=== PATIENT | female | born 2000 | race African-American/Black ===

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

== ENCOUNTER 2022-08-21 16:21 | Emergency (ER) | payer OTHER ==
--- OUTSIDE RECORDS SUMMARY | 2022-08-21 16:27 | XMS REPORT | Continuity of Care Document ---
:2000 Author Organization [facility] t Address [address] [facility] [address] [place] [address] Care Team Providers Name Role Phone Melissa Avila Primary Care Physician [phone] MELISSA YOST Attending Clinician Unavailable KIM FLORES Attending Clinician Unavailable Kim Flores CNM Attending Clinician Doctor Unassigned, [place] Attending Clinician Unavailable Melissa Avila Attending Clinician [phone] UNKNOWN, ATTENDING Attending Clinician Unavailable WILLIE MCPHERSON Attending Clinician Unavailable Len Woods MD Attending Clinician Willie Marlow MD Attending Clinician GINA CHRISTENSEN Attending Clinician Unavailable ProviderRaymundo Temp Attending Clinician Unavailable Gina Ndiaye Attending Clinician PHAN LANE Attending Clinician Unavailable Phan Lane MD Attending Clinician Tony CHAUHAN, Ian Paz Attending Clinician Unavailable Shani Villavicencio Attending Clinician SHANI COLE Attending Clinician Unavailable Ultrasound, Ang-Mfm Attending Clinician Unavailable Juan Miguel Arias DO Attending Clinician [address] [place] [address] Usg Room Attending Clinician Unavailable Kassy Quach MD Attending Clinician KASSY QUACH Attending Clinician Unavailable Len Woods MD Admitting Clinician LEN WOODS Admitting Clinician Unavailable Payers Payer Name Policy Type Policy Number Effective Date Expiration Date Audrey patrick [facility] [id number] 2021 CHOICE [place] STAR 00:00:00 MEDICAID PENDING PENDING 2021 00:00:[address] [facility] [id number] 2021 2021 00:00:00 00:00:00 Problems Condition Condition Condition Status Onset Resolution Last Treating Co mments Source Name Details Category Date Date Treatment Clinician Date Other Other Disease Active Univers general general 1- [place] of counseling [place] 00:[place] and advice and advice 00 Me dical for for Branch contracept contracept saud saud management management Over Over Disease Active Univers weight weight 1-31 ity of 00:00: [place] 00 [facility] Branch Elevated Elevated Disease Active Unive rs blood blood 04-01 ity of pressure pressure 00:00: [place] reading reading 00 Medical without without Branch diagnosis diagnosis of of hypertensi hypertensi on on Disease Active U nivers care and care and 109 ity of examinatio examinatio 00:00: [place] n of n of 00 Medical lactating lactating Bran ch mother mother Vacuum-ass Vacuum-ass Disease Active 2021-03 U nivers isted isted 2-19 ity of vaginal vaginal 00:00: [place] delivery delivery 00 Medica l [place] 39 weeks 39 weeks Disease Active 2021-03 Unive rs gestation gestation 2-18 ity of of of 00:00: [place] 00 [facility] anoop [place] Liveborn Liveborn Disease Active 2021-03 Unive rs infant, of , of 2-18 it y of cohen [place] 00:[place] , , 00 Me dical born in born in [facility] hospital by vaginal by vaginal delivery delivery Normal Normal Disease Active 2021-03 Univers labor labor 2-17 ity of 00:00: [place] 00 Medical Branch Anemia of Anemia of Disease Active 2021-03 Uni vers mother in mother in 2-08 ity of , , 00:00[place] antepartum antepartum 00 Me dical Branch Positive Positive Disease Active 2021-03 Unive rs GBS test GBS test 2-05 ity of 00:00: [place] [facility] Obesity Obesity Disease Active 2021-03 Univers affecting affecting 0-27 it[place] of 00:00[place] in third in third 00 Medica l trimester trimester Bran ch Dysuria Dysuria Disease Active Univers 6-20 ity of 00:00: [place] [facility] Primigravi Primigravi Disease Active U nivers da in da in 6-20 ity of first first 00:00: [place] trimester trimester 00 [facility] Supervisio Supervisio Disease Active U nivers n of n of 5-13 ity of high-risk high-risk 00:00: [place] 00 [facility] BMI BMI Disease Active Univers 28.0-28.9, 28.0-28.9, 5-13 it y of adult adult 00:00: [place] [facility] BMI BMI Disease Active Univers 28.0-28.9, 28.0-28.9, 5-13 it y of adult adult 00:00: [place] [facility] Allergies, Adverse Reactions, Alerts Allergy Allergy Status Severity Reaction(s) Onset Inactive Treating Comm ents Source Name Type Date Date Clinician Amoxicil Propensi Active Rash Univer s amelia ty to 5-13 ity of adverse 00:00: [place] reaction 00 [facility] AMOXICIL DRUG Active Rash Univers AMELIA INGREDI 5-13 ity of 00:00: [place] [facility] Social History Social Habit Start Date Stop Date Quantity Comments Source ASSERTION 2021-05-30 [facility] 00:00:00 [facility] Exposure to 2022-07-14 2022-07-24 Not sure [facility] SARS-CoV-2 00:00:00 13:19:00 [facility] (event) [place] Alcohol intake 2022-07-24 2022-07-24 Ex-drinker [facility] 00:00:00 00:00:00 (finding) [facility] Tobacco use and 2021-09-09 2021-09-09 Smokeless tobacco Un iversity of exposure 00:00:00 00:00:00 non-user [facility] Sex Assigned At [birth year] Universit y of 00:00:00 00:00:00 [facility] Smoking Status Start Date Stop Date Source Never smoked tobacco [facility] Medications Ordered Filled Start Stop Current Ordering Indication Dosage Frequency Signature Comments Components Source Medication Medication Date Date Medication? Clinician (SIG) Name Name KristinIDADANUTA 2022- Yes [id number] 500mg Take 1 Univers LE 500 mg 5-29 - tablet by ity of tablet 00:00: 04:59 mouth in [place] 00 :00 the Medical morning Branch and 1 tablet in the evening. Do all this for 7 days. 2021-03 Yes [id number] 1{tbl} Take 1 U nivers vitamin 2-19 tablet by ity of w/FA tablet 00:00: mouth in [place] 00 the Medical morning. Branch docusate 2021-03 Yes [id number] 200mg Take 2 Un foster 100 mg 2-19 capsules ity of capsule 00:00: by mouth [place] 00 once daily Medical as needed Branch for Constipati on. ferrous 2021-03 Yes [id number] 325mg Take 1 Uni vers sulfate 325 2-19 tablet by ity of mg (65 mg 00:00: [place] iron) 00 the Medical tablet morning Branch and 1 tablet in the evening. ibuprofen 2021-03 Yes [id number] 600mg Take 1 U nivers 600 mg 2-19 tablet by ity of tablet 00:00: mouth [place] 00 every 6 Medical (six) Branch hours as needed (Pain). Take with food or milk. 2021-03 Yes [id number] 1{tbl} Take 1 U nivers vitamin 2-19 tablet by ity of w/FA tablet 00:00: mouth in [place] 00 the Medical morning. Branch docusate 2021-03 Yes [id number] 200mg Take 2 Un foster 100 mg 2-19 capsules ity of capsule 00:00: by mouth [place] 00 once daily Medical as needed Branch for Constipati on. ferrous 2021-03 Yes [id number] 325mg Take 1 Uni vers sulfate 325 2-19 tablet by ity of mg (65 mg 00:00: [place] iron) 00 the Medical tablet morning Branch and 1 tablet in the evening. ibuprofen 2021-03 Yes [id number] 600mg Take 1 U nivers 600 mg 2-19 tablet by ity of tablet 00:00: mouth [place] 00 every 6 Medical (six) Branch hours as needed (Pain). Take with food or milk. 2021-03 Yes [id number] 1{tbl} Take 1 U nivers vitamin 2-19 tablet by ity of w/FA tablet 00:00: mouth in [place] 00 the Medical morning. Branch docusate 2021-03 Yes [id number] 200mg Take 2 Un foster 100 mg 2-19 capsules ity of capsule 00:00: by mouth [place] 00 once daily Medical as needed Branch for Constipati on. ferrous 2021-03 Yes [id number] 325mg Take 1 Uni vers sulfate 325 2-19 tablet by ity of mg (65 mg 00:00: [place] iron) 00 the Medical tablet morning Branch and 1 tablet in the evening. ibuprofen 2021-03 Yes [id number] 600mg Take 1 U nivers 600 mg 2-19 tablet by ity of tablet 00:00: mouth [place] 00 every 6 Medical (six) Branch hours as needed (Pain). Take with food or milk. 2021-03 Yes [id number] 1{tbl} Take 1 U nivers vitamin 2-19 tablet by ity of w/FA tablet 00:00: mouth in [place] 00 the Medical morning. Branch docusate 2021-03 Yes [id number] 200mg Take 2 Un foster 100 mg 2-19 capsules ity of capsule 00:00: by mouth [place] 00 once daily Medical as needed Branch for Constipati on. ferrous 2021-03 Yes [id number] 325mg Take 1 Uni vers sulfate 325 2-19 tablet by ity of mg (65 mg 00:00: [place] iron) 00 the Medical tablet morning Branch and 1 tablet in the evening. ibuprofen 2021-03 Yes [id number] 600mg Take 1 U nivers 600 mg 2-19 tablet by ity of tablet 00:00: mouth [place] 00 every 6 Medical (six) Branch hours as needed (Pain). Take with food or milk. 2021-03 Yes [id number] 1{tbl} Take 1 U nivers vitamin 2-19 tablet by ity of w/FA tablet 00:00: mouth in [place] 00 the Medical morning. Branch docusate 2021-03 Yes [id number] 200mg Take 2 Un foster 100 mg 2-19 capsules ity of capsule 00:00: by mouth [place] 00 once daily Medical as needed Branch for Constipati on. ferrous 2021-03 Yes [id number] 325mg Take 1 Uni vers sulfate 325 2-19 tablet by ity of mg (65 mg 00:00: [place] iron) 00 the Medical tablet morning Branch and 1 tablet in the evening. ibuprofen 2021-03 Yes [id number] 600mg Take 1 U nivers 600 mg 2-19 tablet by ity of tablet 00:00: mouth [place] 00 every 6 Medical (six) Branch hours as needed (Pain). Take with food or milk. 2021-03 Yes [id number] 1{tbl} Take 1 U nivers vitamin 2-19 tablet by ity of w/FA tablet 00:00: mouth in [place] 00 the Medical morning. [facility] Yes [id number] 200mg Take 2 Un foster 100 mg 2-19 capsules ity of capsule 00:00: by mouth [place] 00 once daily Medical as needed Branch for Constipati on. ferrous 2021-03 Yes [id number] 325mg Take 1 Uni vers sulfate 325 2-19 tablet by ity of mg (65 mg 00:00: mouth [place] iron) 00 the Medical tablet morning Branch and 1 tablet in the evening. ibuprofen 2021-03 Yes [id number] 600mg Take 1 U nivers 600 mg 2-19 tablet by ity of tablet 00:00: mouth [place] 00 every 6 Medical (six) Branch hours as needed (Pain). Take with food or milk. 2021-03 Yes [id number] 1{tbl} Take 1 U nivers vitamin 2-19 tablet by ity of w/FA tablet 00:00: mouth in [place] 00 the Medical morning. Branch [facility]-03 Yes [id number] 200mg Take 2 Un foster 100 mg 2-19 capsules ity of capsule 00:00: by mouth [place] 00 once daily Medical as needed Branch for Constipati on. ferrous 2021-03 Yes [id number] 325mg Take 1 Uni vers sulfate 325 2-19 tablet by ity of mg (65 mg 00:00: [place] iron) 00 the Medical tablet morning Branch and 1 tablet in the evening. ibuprofen 2021-03 Yes [id number] 600mg Take 1 U nivers 600 mg 2-19 tablet by ity of tablet 00:00: mouth [place] 00 every 6 Medical (six) Branch hours as needed (Pain). Take with food or milk. 2021-03 Yes [id number] 1{tbl} Take 1 U nivers vitamin 2-19 tablet by ity of w/FA tablet 00:00: mouth in [place] 00 the Medical morning. Branch docusate 2021-03 Yes [id number] 200mg Take 2 Un foster 100 mg 2-19 capsules ity of capsule 00:00: by mouth [place] 00 once daily Medical as needed Branch for Constipati on. ferrous 2021-03 Yes [id number] 325mg Take 1 Uni vers sulfate 325 2-19 tablet by ity of mg (65 mg 00:00: [place] iron) 00 the Medical tablet morning Branch and 1 tablet in the evening. ibuprofen 2021-03 Yes [id number] 600mg Take 1 U nivers 600 mg 2-19 tablet by ity of tablet 00:00: mouth [place] 00 every 6 Medical (six) Branch hours as needed (Pain). Take with food or milk. 2021-03- No [id number] 1{tbl} Take 1 Univers vitamin 2-19 05-25 tablet by ity of w/FA tablet 00:00: 00:00 mouth [place] 00 :00 the Medical morning. Branch docusate 2021-03- No [id number] 200mg Take 2 U nivers 100 mg 2-19 05-25 capsules ity of capsule 00:00: 00:00 by mouth [place] 00 :00 once daily Medical as needed Branch for Constipati on. ferrous 2021-03- No [id number] 325mg Take 1 Un foster sulfate 325 2-19 05-25 tablet by it y of mg (65 mg 00:00: 00:00 mouth in [place] as iron) 00 :00 the Medical tablet morning Branch and 1 tablet in the evening. ibuprofen 2021-03- No [id number] 600mg Take 1 Univers 600 mg 2-19 05-25 tablet by ity of tablet 00:00: 00:00 mouth [place] 00 :00 every 6 Medical (six) Branch hours as needed (Pain). Take with food or milk. 2021-03- No [id number] 1{tbl} Take 1 Univers vitamin - 05-25 tablet by ity of w/FA tablet 00:00: 00:00 mouth in [place] 00 :00 the Medical morning. Branch docusate 2021-03- No [id number] 200mg Take 2 U nivers 100 mg 04-20-25 capsules ity of capsule 00:00: 00:00 by mouth [place] 00 :00 once daily Medical as needed Branch for Constipati on. ferrous 2021-03- No [id number] 325mg Take 1 Un foster sulfate 325 04-20-25 tablet by it y of mg (65 mg 00:00: 00:00 mouth in [place] as iron) 00 :00 the Medical tablet morning Branch and 1 tablet in the evening. ibuprofen 2021-03- No [id number] 600mg Take 1 Univers 600 mg 04-20-25 tablet by ity of tablet 00:00: 00:00 mouth [place] 00 :00 every 6 Medical (six) Branch hours as needed (Pain). Take with food or milk. rho(D) 2021-03 Yes 300ug 300 mcg, Univer s immune 2-18 Intramuscu ity of globulin 10:16: lar, ONCE, [place] as (RHOGAM) 19 For 1 Medical syringe 300 dose, Branch mcg Conditiona l, Routine witch Du 2021-03 Yes Topical, Un foster (TUCKS) 50 2-18 Q4HPRN, ity of % topical 10:16: Starting [place] pad 15 on [place] Medical 02/16/22 Branch at 0416, Until Discontinu ed, Routine, rectal/hem orrhoidal pain HYDROcodone 2021-03 Yes 1{tbl} 1 tablet, Univers -acetaminop 2-18 Oral, ity of hen (NORCO 10:16: Q6HPRN, [place] 5) 5-325 mg 15 Starting Medi anoop tablet 1 on [place] Branch tablet 02/16/22 at 0416, Until Discontinu ed, Routine, Pain (scale 7-10) ibuprofen 2021-03 Yes 600mg 600 mg, Univ ers (IBU) 2-18 Oral, ity of tablet 600 10:16: Q6HPRN, [place] mg 15 Starting Medical on Sun Branch 02/16/22 at 0416, Until Discontinu ed, Routine, Pain (scale 4-6) acetaminoph 2021-03 Yes 650mg 650 mg, Un foster en 2-18 Oral, ity of (TYLENOL) 10:16: Q6HPRN, [place] tablet 650 15 Starting Medic al mg on Sun Branch 02/16/22 at 0416, Until Discontinu ed, Routine, Pain (scale 1-3) diphenhydrA 2021-03 Yes 25mg 25 mg, Univ ers MINE 2-18 Oral, ity of (BENADRYL) 10:16: Q6HPRN, [place] tablet 25 15 Starting Medica l mg on Sun Branch 02/16/22 at 0416, Until Discontinu ed, Routine, Sleep, Itching ondansetron 2021-03 Yes 4mg 4 mg, Slow Univers (ZOFRAN 2-18 IV Push, ity of (PF)) 10:16: Q8HPRN, [place] injection 4 15 Starting Medi anoop mg on Sun Branch 02/16/22 at 0416, Until Discontinu ed, Routine, Nausea and Vomiting (N/V) simethicone 2021-03 Yes 160mg 160 mg, Un foster (GAS RELIEF 2-18 Oral, ity of (SIMETHICON 10:16: PC+HSPRN, [place] E)) 15 Starting Medical chewable on Sun Branch tablet 160 02/16/22 mg at 0416, Until Discontinu ed, Routine, Gas docusate 2021-03 Yes 200mg 200 mg, Unive rs (COLACE) 2-18 Oral, ity of capsule 200 10:16: QDAILYPRN, [place] mg 15 Starting Medical on Sun Branch 02/16/22 at 0416, Until Discontinu ed, Routine, Constipati on magnesium 2021-03 Yes 30mL 30 mL, Univer s hydroxide 2-18 Oral, ity of (MILK OF 10:16: QDAILYPRN, [place] as MAGNESIA) 15 Starting Medica l 400 mg/5 mL on Sun Branch suspension 02/16/22 30 mL at 0416, Until Discontinu ed, Routine, Constipati on benzocaine- 2021-03 Yes Topical, Un foster menthol 2-18 PRN, ity of (DERMOPLAST 10:16: Starting [place] ) 20-0.5 % 15 on [place] Medical topical 02/16/22 Branch spray at 0416, Until Discontinu ed, Routine, Perineum discomfort fentaNYL-ro 2021-03- No Epidural, Univers pivacaine 2 04-19 ONCE INTRA i ty of mcg/mL-0.1 02:30: 14:20 PROCEDURE, [place] % (PF) in 00 :45 Starting Medica l NS 200 mL on [facility] Branch epidural 02/15/22 infusion at 2030, RTU Until [place] 02/16/22 at 0820, Routine, Intra-op lidocaine-e 2021-03- No Intraderma Univers pinephrine 04-19 l, ONCE ity o f (XYLOCAINE 02:28: 14:20 INTRA [place] W/EPINEPHRI 00 :45 PROCEDURE, Me dical NE) 1.5 Starting Branch %-1:200,000 on Sat injection 02/15/22 at 2028, Until 02/16/22 at 0820, Routine, Intra-op clindamycin 2021-03- No 900mg 900 mg, IV Univers in 5 % 04-19 Piggyback, ity of dextrose 02:00: 10:16 Q8H ABXMike s (CLEOCIN) 00 :17 144 doses, Medi anoop 900 mg/50 First dose Bran ch mL IV on Sat piggyback 02/15/22 RTU 900 mg at 2000, Last dose on Thu04/04/22 at 1200, Administer over 30 Minutes, 50 mL
Reas on for Anti-Infec tive: Documented Infection& lt;br>Docu mented Infection Site: Urine
D uration of Therapy: Other (see Comments)< br>Rest ricted use approved by: [employer]
human resources team member approving Restricted medication : LEN WOODS lactated 2021-03- No 500mL at 999 Unive rs ringers IV 04-19-18 mL/hr, 500 it y of infusion 00:12: 10:16 mL, IV [place] 500 mL 41 :17 Infusion, Medical PRN - SEE Branch INSTRUCTIO NS, Starting on 02/15/22 at 1812, Until 02/16/22 at 0416, Routine D5W-LR IV 2021-03 No 1000mL at 1-125 U nivers infusion 2-18 12-18 mL/hr, IV ity o f 1,000 mL 00:12: 10:16 Infusion, [place] as 41 :17 TITRATE, Medical Starting Branch on 02/15/22 at 1812, Until 02/16/22 at 0416, Routine NaCl 0.9% 2021-03 Yes 1000mL at 999 Univ ers (NS) IV 2-10 mL/hr, ity of infusion 04:45: Intravenou [place] as 1,000 mL 00 s, Medical CONTINUOUS Branch , Starting on 02/07/22 at 2245, Until Discontinu ed, Routine ondansetron 2021-03- No 4mg 4 mg, Slow Univers (ZOFRAN 2-10 12-10 IV Push, ity of (PF)) 03:45: 03:45 ONCE, 1 [place] injection 4 00 :00 dose, On Medi anoop mg Fri Branch 02/07/22 at 2145, NORBERTO cephALEXin 2021-03 Yes [id number] 500mg Take 1 Univers (KEFLEX) 2-09 capsule by ity o f 500 mg 00:00: mouth in [place] capsule 00 the Medical morning Branch and 1 capsule in the evening. ondansetron 2021-03 Yes [id number] 4mg Take 1 U nivers (ZOFRAN) 4 2-09 tablet by ity of mg tablet 00:00: mouth [place] 00 every 8 Medical (eight) Branch hours as needed for Nausea and Vomiting (N/V). cephALEXin 2021-03 Yes [id number] 500mg Take 1 Univers (KEFLEX) 2-09 capsule by ity o f 500 mg 00:00: mouth in [place] capsule 00 the Medical morning Branch and 1 capsule in the evening. ondansetron 2021-03 Yes [id number] 4mg Take 1 U nivers (ZOFRAN) 4 2-09 tablet by ity of mg tablet 00:00: mouth [place] 00 every 8 Medical (eight) Branch hours as needed for Nausea and Vomiting (N/V). cephALEXin 2021-03 Yes [id number] 500mg Take 1 Univers (KEFLEX) 2-09 capsule by ity o f 500 mg 00:00: mouth in [place] capsule 00 the Medical morning Branch and 1 capsule in the evening. ondansetron 2021-03 Yes [id number] 4mg Take 1 U nivers (ZOFRAN) 4 2-09 tablet by ity of mg tablet 00:00: mouth [place] 00 every 8 Medical (eight) Branch hours as needed for Nausea and Vomiting (N/V). cephALEXin 2021-03 Yes [id number] 500mg Take 1 Univers (KEFLEX) 2-09 capsule by ity o f 500 mg 00:00: mouth in [place] capsule 00 the Medical morning Branch and 1 capsule in the evening. ondansetron 2021-03 Yes [id number] 4mg Take 1 U nivers (ZOFRAN) 4 2-09 tablet by ity of mg tablet 00:00: mouth [place] 00 every 8 Medical (eight) Branch hours as needed for Nausea and Vomiting (N/V). cephALEXin 2021-03- No [id number] 500mg Take 1 Univers (KEFLEX) 2-09 12-19 capsule by ity of 500 mg 00:00: 00:00 mouth in [place] capsule 00 :00 the Medical morning Branch and 1 capsule in the evening. ondansetron 2021-03- No [id number] 4mg Take 1 Univers (ZOFRAN) 4 2-09 12-19 tablet by ity of mg tablet 00:00: 00:00 mouth [place] 00 :00 every 8 Medical (eight) Branch hours as needed for Nausea and Vomiting (N/V). Iron Fum & 2021-03 Yes [id number] 1{capsu Take 1 Univers P-FA-Vit B 2-08 le} capsule by ity of & C No.9 00:00: mouth [place] (INTEGRA 00 daily. Medical PLUS) 125 Branch mg iron- 1 mg Cap Iron Fum & 2021-03 Yes [id number] 1{capsu Take 1 Univers P-FA-Vit B 2-08 le} capsule by ity of & C No.9 00:00: mouth [place] (INTEGRA 00 daily. Medical PLUS) 125 Branch mg iron- 1 mg Cap Iron Fum & 2021-03 Yes 1{capsu Take 1 Univers P-FA-Vit B 2-08 le} capsule by ity of & C No.9 00:00: mouth [place] (INTEGRA 00 daily. Medical PLUS) 125 Branch mg iron- 1 mg Cap Iron Fum & 2021-03 Yes [id number] 1{capsu Take 1 Univers P-FA-Vit B 2-08 le} capsule by ity of & C No.9 00:00: mouth [place] (INTEGRA 00 daily. Medical PLUS) 125 Branch mg iron- 1 mg Cap Iron Fum & 2021-03 Yes [id number] 1{capsu Take 1 Univers P-FA-Vit B 2-08 le} capsule by ity of & C No.9 00:00: mouth [place] (INTEGRA 00 daily. Medical PLUS) 125 Branch mg iron- 1 mg Cap Iron Fum & 2021-03 Yes [id number] 1{capsu Take 1 Univers P-FA-Vit B 2-08 le} capsule by ity of & C No.9 00:00: mouth [place] (INTEGRA 00 daily. Medical PLUS) 125 Branch mg iron- 1 mg Cap Iron Fum & 2021-03- No [id number] 1{capsu Take 1 Univers P-FA-Vit B 2-08 12-19 le} capsule by it y of & C No.9 00:00: 00:00 mouth [place] (INTEGRA 00 :00 daily. Medical PLUS) 125 Branch mg iron- 1 mg Cap No known 2021-03 No No known Unive rs medications 2-02 medication it y of 13:20: [address] No known 2021- No No known Unive rs medications 1-10 medication it y of 08:48: [address] No known 2021-1 No No known Unive rs medications 1-10 medication it y of 08:48: [address] No known 2021-1 No No known Unive rs medications 1-10 medication it y of 08:48: [address] No known 2021-1 No No known Unive rs medications 1-10 medication it y of 08:48: [address] No known 2021-1 No No known Unive rs medications 0-27 medication it y of 09:00: [address] No known 2021-1 No No known Unive rs medications 0-06 medication it y of 09:30: [address] No known 2021-1 No No known Unive rs medications 0-06 medication it y of 09:30: [address] No known 2021-0 No No known Unive rs medications 9-22 medication it y of 11:24: [address] No known 2021-0 No No known Unive rs medications 9- medication it y of 11:24: [address] No known 2021-0 No No known Unive rs medications 9- medication it y of 11:24: [address] No known 2021-0 No No known Unive rs medications 9- medication it y of 11:24: [address] No known 2021-0 No No known Unive rs medications 9- medication it y of 11:24: [address] No known 2021-0 No No known Unive rs medications 9- medication it y of 13:22: [address] No known 2021-0 No No known Unive rs medications 9- medication it y of 13:22: [address] No known 2021-0 No No known Unive rs medications 8-25 medication it y of 13:34: [address] No known 2021-0 No No known Unive rs medications 8-25 medication it y of 13:34: [address] fluconazole 2021-0 2022- No [id number] 150mg Take 1 Univers (DIFLUCAN) 8- 08-26 tablet by ity of 150 mg 00:00: 04:59 mouth [place] tablet 00 :00 now for 1 Medical dose. Branch No known 0 No No known Unive rs medications 8-08 medication it y of 11:55: [address] No known 2021-0 No No known Unive rs medications 8-08 medication it y of 11:55: [address] No known 2021-0 No No known Unive rs medications 7-11 medication it y of 12:00: [address] No known 2021-0 No No known Unive rs medications 7-11 medication it y of 12:00: [address] No known 2021-0 No No known Unive rs medications 7-11 medication it y of 12:00: [address] Immunizations Ordered Immunization Filled Immunization Date Status Commen ts Source Name Name Influenza Virus 2021-12-26 Completed Universit y of Vaccine [facility] IM, 00:00:00 [facility] dical Preserv and ABX Free Bran ch 6 MO-64 YRS Influenza Virus 2021-12-26 Completed Universit y of Vaccine Quad IM, 00:00:00 [place] Me dical Preserv and ABX Free Bran ch 6 MO-64 YRS Influenza Virus 2021-12-26 Completed Universit y of Vaccine [facility] IM, 00:00:00 [place] Me dical Preserv and ABX Free Bran ch 6 MO-64 YRS Influenza Virus 2021-12-26 Completed Universit y of Vaccine [facility] IM, 00:00:00 [place] Me dical Preserv and ABX Free Bran ch 6 MO-64 YRS Influenza Virus 2021-12-26 Completed Universit y of Vaccine [facility] IM, 00:00:00 [place] Me dical Preserv and ABX Free Bran ch 6 MO-64 YRS Influenza Virus 2021-12-26 Completed Universit y of Vaccine [facility] IM, 00:00:00 [place] Me dical Preserv and ABX Free Bran ch 6 MO-64 YRS Influenza Virus 2021-12-26 Completed Universit y of Vaccine [facility] IM, 00:00:00 [place] Me dical Preserv and ABX Free Bran ch 6 MO-64 YRS Influenza Virus 2021-12-26 Completed Universit y of Vaccine Quad IM, 00:00:00 [place] Me dical Preserv and ABX Free Bran ch 6 MO-64 YRS Influenza Virus 2021-12-26 Completed [facility] Vaccine [facility] IM, 00:00:00 [place] [facility] Preserv and ABX Free Bran ch 6 MO-64 YRS TDAP 2021-12-05 Completed [facility] 00:00:00 [facility] TDAP 2021-12-05 Completed [facility] of 00:00:00 [facility] TDAP 2021-12-05 Completed [facility] of 00:00:00 [facility] TDAP 2021-12-05 Completed [facility] of 00:00:00 [facility] TDAP 2021-12-05 Completed [facility] of 00:00:00 [facility] TDAP 2021-12-05 Completed [facility] of 00:00:00 [facility] TDAP 2021-12-05 Completed [facility] of 00:00:00 [facility] TDAP 2021-12-05 Completed [facility] of 00:00:00 [facility] TDAP 2021-12-05 Completed [facility] of 00:00:00 [facility] TDAP 2021-12-05 Completed [facility] of 00:00:00 [facility] TDAP 2021-12-05 Completed [facility] of 00:00:00 [facility] TDAP 2021-12-05 Completed [facility] of 00:00:00 [facility] TDAP 2021-12-05 Completed [facility] of 00:00:00 [facility] TDAP 2021-12-05 Completed [facility] of 00:00:00 [facility] TDAP 2021-12-05 Completed [facility] of 00:00:00 [facility] TDAP 2021-12-05 Completed [facility] of 00:00:00 [facility] TDAP 2021-12-05 Completed [facility] of 00:00:00 [facility] TDAP 2021-12-05 Completed [facility] of 00:00:00 [facility] TDAP 2021-12-05 Completed [facility] of 00:00:00 [facility] TDAP 2021-12-05 Completed [facility] of 00:00:00 [facility] TDAP 2021-12-05 Completed [facility] of 00:00:00 [facility] TDAP 2021-12-05 Completed [facility] of 00:00:00 [facility] TDAP 2021-12-05 Completed [facility] of 00:00:00 [facility] TDAP 2021-12-05 Completed [facility] of 00:00:00 [facility] TDAP 2021-12-05 Completed [facility] of 00:00:00 [facility] HPV 2014-06-21 Completed [facility] 00:00:00 [facility] Meningococcal 2014-06-21 Completed [facility] Polysaccharide 00:00:00 [place] [facility] (groups A, C, Y and Branc h W-135) conjugate vaccine (MCV4P) TDAP 2014-06-21 Completed [facility] 00:00:00 [facility] HPV 2014-06-21 Completed [facility] 00:00:00 [facility] Meningococcal 2014-06-21 Completed [facility] Polysaccharide 00:00:00 [place] [facility] (groups A, C, Y and Branc h W-135) conjugate vaccine (MCV4P) TDAP 2014-06-21 Completed [facility] 00:00:00 [facility] HPV 2014-06-21 Completed [facility] 00:00:00 [facility] Meningococcal 2014-06-21 Completed [facility] Polysaccharide 00:00:00 [place] [facility] (groups A, C, Y and Branc h W-135) conjugate vaccine (MCV4P) TDAP 2014-06-21 Completed [facility] 00:00:00 [facility] HPV 2014-06-21 Completed [facility] 00:00:00 [facility] Meningococcal 2014-06-21 Completed [facility] Polysaccharide 00:00:00 [place] [facility] (groups A, C, Y and Branc h W-135) conjugate vaccine (MCV4P) TDAP 2014-06-21 Completed [facility] of 00:00:00 [facility] HPV 2014-06-21 Completed [facility] 00:00:00 [facility] Meningococcal 2014-06-21 Completed [facility] Polysaccharide 00:00:00 [place] [facility] (groups A, C, Y and Branc h W-135) conjugate vaccine (MCV4P) TDAP 2014-06-21 Completed [facility] of 00:00:00 [facility] HPV 2014-06-21 Completed [facility] 00:00:00 [facility] Meningococcal 2014-06-21 Completed [facility] Polysaccharide 00:00:00 [place] [facility] (groups A, C, Y and Branc h W-135) conjugate vaccine (MCV4P) TDAP 2014-06-21 Completed [facility] 00:00:00 [facility] HPV 2014-06-21 Completed [facility] 00:00:00 [facility] Meningococcal 2014-06-21 Completed [facility] Polysaccharide 00:00:00 [place] [facility] (groups A, C, Y and Branc h W-135) conjugate vaccine (MCV4P) TDAP 2014-06-21 Completed [facility] of 00:00:00 [facility] HPV 2014-06-21 Completed [facility] 00:00:00 [facility] Meningococcal 2014-06-21 Completed [facility] Polysaccharide 00:00:00 [place] [facility] (groups A, C, Y and Branc h W-135) conjugate vaccine (MCV4P) TDAP 2014-06-21 Completed [facility] of 00:00:00 [facility] HPV 2014-06-21 Completed [facility] 00:00:00 [facility] Meningococcal 2014-06-21 Completed [facility] Polysaccharide 00:00:00 [place] [facility] (groups A, C, Y and Branc h W-135) conjugate vaccine (MCV4P) TDAP 2014-06-21 Completed [facility] of 00:00:00 [facility] DTaP, Unspecified 2006-12-15 Completed [facility]y of Formulation 00:00:00 [facility] HEPATITIS A 2006-12-15 Completed [facility] of 00:00:00 [facility] DTaP, Unspecified 2006-12-15 Completed [facility] of Formulation 00:00:00 [facility] HEPATITIS A 2006-12-15 Completed [facility] of 00:00:00 [facility] DTaP, Unspecified 2006-12-15 Completed [facility] it[facility] of Formulation 00:00:00 [facility] HEPATITIS A 2006-12-15 Completed [facility] of 00:00:00 [facility] DTaP, Unspecified 2006-12-15 Completed [facility] of Formulation 00:00:00 [facility] HEPATITIS A 2006-12-15 Completed [facility] of 00:00:00 [facility] DTaP, Unspecified 2006-12-15 Completed [facility] of Formulation 00:00:00 [facility] HEPATITIS A 2006-12-15 Completed [facility] of 00:00:00 [facility] DTaP, Unspecified 2006-12-15 Completed [facility] of Formulation 00:00:00 [facility] HEPATITIS A 2006-12-15 Completed [facility] of 00:00:00 [facility] DTaP, Unspecified 2006-12-15 Completed [facility] it[facility] of Formulation 00:00:00 [facility] HEPATITIS A 2006-12-15 Completed [facility] of 00:00:00 [facility] DTaP, Unspecified 2006-12-15 Completed [facility] of Formulation 00:00:00 [facility] HEPATITIS A 2006-12-15 Completed [facility] of 00:00:00 [facility] DTaP, Unspecified 2006-12-15 Completed [facility] of Formulation 00:00:00 [facility] HEPATITIS A 2006-12-15 Completed [facility] of 00:00:00 [facility] Proquad 2006-09-24 Completed [facility] of (MMR/VARICELLA) 00:00:00 [facility] [place] [facility] IPV 2006-09-24 Completed [facility] of 00:00:00 [facility] Proquad 2006-09-24 Completed [facility] of (MMR/VARICELLA) 00:00:00 [facility] [place] [facility] IPV 2006-09-24 Completed [facility] of 00:00:00 [facility] Proquad 2006-09-24 Completed [facility] of (MMR/VARICELLA) 00:00:00 [facility] [place] [facility] IPV 2006-09-24 Completed [facility] of 00:00:00 [facility] Proquad 2006-09-24 Completed [facility] of (MMR/VARICELLA) 00:00:00 [facility] [place] [facility] IPV 2006-09-24 Completed [facility] of 00:00:00 [facility] Proquad 2006-09-24 Completed [facility] of (MMR/VARICELLA) 00:00:00 [facility] Branch IPV 2006-09-24 Completed [facility] of 00:00:00 [facility] Proquad 2006-09-24 Completed [facility] of (MMR/VARICELLA) 00:00:00 [facility] [place] [facility] IPV 2006-09-24 Completed [facility] of 00:00:00 [facility] Proquad 2006-09-24 Completed [facility] of (MMR/VARICELLA) 00:00:00 [facility] Branch IPV 2006-09-24 Completed [facility] of 00:00:00 [facility] Proquad 2006-09-24 Completed [facility] of (MMR/VARICELLA) 00:00:00 [facility] IPV 2006-09-24 Completed [facility] of 00:00:00 [facility] Proquad 2006-09-24 Completed [facility] of (MMR/VARICELLA) 00:00:00 [facility] IPV 2006-09-24 Completed [facility] of 00:00:00 [facility] DTaP, Unspecified 2006-05-28 Completed Univers ity of Formulation 00:00:00 [facility] HEPATITIS A 2006-05-28 Completed [facility] of 00:00:00 [facility] Hep B, Adol or Pedi 2006-05-28 Completed Unive rsity of Dosage 00:00:00 [facility] Hib-HbOC 2006-05-28 Completed [facility] of 00:00:00 [facility] Pneumococcal 7 2006-05-28 Completed University of Conjugate, PCV7 00:00:00 [facility] (Prevnar7) Branch DTaP, Unspecified 2006-05-28 Completed [facility] it[facility] of Formulation 00:00:00 [facility] HEPATITIS A 2006-05-28 Completed [facility] of 00:00:00 [facility] Hep B, Adol or Pedi 2006-05-28 Completed Unive rsity of Dosage 00:00:00 [facility] Hib-HbOC 2006-05-28 Completed [facility] of 00:00:00 [facility] Pneumococcal 7 2006-05-28 Completed [facility] of Conjugate, PCV7 00:00:00 [facility] (Prevnar7) Branch DTaP, Unspecified 2006-05-28 Completed Univers ity of Formulation 00:00:00 [facility] HEPATITIS A 2006-05-28 Completed [facility] of 00:00:00 [facility] Hep B, Adol or Pedi 2006-05-28 Completed Unive rsity of Dosage 00:00:00 [facility] Hib-HbOC 2006-05-28 Completed [facility] of 00:00:00 [facility] Pneumococcal 7 2006-05-28 Completed [facility] of Conjugate, PCV7 00:00:00 [place] [facility] (Prevnar7) Branch DTaP, Unspecified 2006-05-28 Completed [facility] ity of Formulation 00:00:00 [facility] HEPATITIS A 2006-05-28 Completed [facility] of 00:00:00 [facility] Hep B, Adol or Pedi 2006-05-28 Completed Unive rsity of Dosage 00:00:00 [facility] Hib-HbOC 2006-05-28 Completed [facility] of 00:00:00 [facility] Pneumococcal 7 2006-05-28 Completed [facility] of Conjugate, PCV7 00:00:00 [facility] ical (Prevnar7) Branch DTaP, Unspecified 2006-05-28 Completed Univers ity of Formulation 00:00:00 [facility] HEPATITIS A 2006-05-28 Completed [facility] of 00:00:00 [facility] Hep B, Adol or Pedi 2006-05-28 Completed Unive rsity of Dosage 00:00:00 [facility] Hib-HbOC 2006-05-28 Completed [facility] of 00:00:00 [facility] Pneumococcal 7 2006-05-28 Completed [facility] of Conjugate, PCV7 00:00:00 [facility] ica (Prevnar7) Branch DTaP, Unspecified 2006-05-28 Completed Univers ity of Formulation 00:00:00 [facility] HEPATITIS A 2006-05-28 Completed [facility] of 00:00:00 [facility] Hep B, Adol or Pedi 2006-05-28 Completed Unive rsity of Dosage 00:00:00 [facility] Hib-HbOC 2006-05-28 Completed [facility] of 00:00:00 [facility] Pneumococcal 7 2006-05-28 Completed [facility] of Conjugate, PCV7 00:00:00 [facility] ical (Prevnar7) Branch DTaP, Unspecified 2006-05-28 Completed Univers ity of Formulation 00:00:00 [facility] HEPATITIS A 2006-05-28 Completed [facility] of 00:00:00 [facility] Hep B, Adol or Pedi 2006-05-28 Completed Unive rsity of Dosage 00:00:00 [facility] Hib-HbOC 2006-05-28 Completed [facility] of 00:00:00 [facility] Pneumococcal 7 2006-05-28 Completed [facility] of Conjugate, PCV7 00:00:00 [facility] (Prevnar7) Branch DTaP, Unspecified 2006-05-28 Completed Univers ity of Formulation 00:00:00 [facility] HEPATITIS A 2006-05-28 Completed [facility] of 00:00:00 [facility] Hep B, Adol or Pedi 2006-05-28 Completed Unive rsity of Dosage 00:00:00 [facility] Hib-HbOC 2006-05-28 Completed [facility] of 00:00:00 [facility] Pneumococcal 7 2006-05-28 Completed University of Conjugate, PCV7 00:00:00 [facility] (Prevnar7) Branch DTaP, Unspecified 2006-05-28 Completed Univers ity of Formulation 00:00:00 [facility] HEPATITIS A 2006-05-28 Completed [facility] of 00:00:00 [facility] Hep B, Adol or Pedi 2006-05-28 Completed Unive rsity of Dosage 00:00:00 [facility] Hib-HbOC 2006-05-28 Completed [facility] of 00:00:00 [facility] Pneumococcal 7 2006-05-28 Completed University of Conjugate, PCV7 00:00:00 [facility] (Prevnar7) Branch MMR 2003-06-29 Completed [facility] of 00:00:00 [facility] Varicella 2003-06-29 Completed University of (varivax)(chicken 00:00:00 [place] [facility] pox) [facility] MMR 2003-06-29 Completed [facility] 00:00:00 [facility] Varicella 2003-06-29 Completed [facility] of (varivax)(chicken 00:00:00 [place] [facility] pox) [facility] MMR 2003-06-29 Completed [facility] 00:00:00 [facility] Varicella 2003-06-29 Completed [facility] of (varivax)(chicken 00:00:00 [place] [facility] pox) [facility] MMR 2003-06-29 Completed [facility] 00:00:00 [facility] Varicella 2003-06-29 Completed [facility] of (varivax)(chicken 00:00:00 [place] [facility] pox) [facility] MMR 2003-06-29 Completed [facility] 00:00:00 [facility] Varicella 2003-06-29 Completed [facility] of (varivax)(chicken 00:00:00 [place] [facility] pox) [facility] MMR 2003-06-29 Completed [facility] 00:00:00 [facility] Varicella 2003-06-29 Completed [facility] of (varivax)(chicken 00:00:00 [place] [facility] pox) [facility] MMR 2003-06-29 Completed [facility] 00:00:00 [facility] Varicella 2003-06-29 Completed [facility] of (varivax)(chicken 00:00:00 [place] [facility] pox) [facility] MMR 2003-06-29 Completed [facility] of 00:00:00 [facility] Varicella 2003-06-29 Completed [facility] of (varivax)(chicken 00:00:00 [place] [facility] pox) [facility] MMR 2003-06-29 Completed [facility] of 00:00:00 [facility] Varicella 2003-06-29 Completed [facility] of (varivax)(chicken 00:00:00 [place] [facility] pox) [facility] DTaP, Unspecified 2003-04-06 Completed [facility] ity of Formulation 00:00:00 [facility] HIB 4 Dose Schedule 2003-04-06 Completed Unive rsity of 00:00:00 [facility] Pneumococcal 7 2003-04-06 Completed [facility] of Conjugate, PCV7 00:00:00 [place] [facility] (Prevnar7) Branch IPV 2003-04-06 Completed [facility] of 00:00:00 [facility] DTaP, Unspecified 2003-04-06 Completed [facility] ity of Formulation 00:00:00 [facility] HIB 4 Dose Schedule 2003-04-06 Completed Unive rsity of 00:00:00 [facility] Pneumococcal 7 2003-04-06 Completed [facility] of Conjugate, PCV7 00:00:00 [place] [facility] (Prevnar7) Branch IPV 2003-04-06 Completed [facility] of 00:00:00 [facility] DTaP, Unspecified 2003-04-06 Completed [facility] ity of Formulation 00:00:00 [facility] HIB 4 Dose Schedule 2003-04-06 Completed Unive rsity of 00:00:00 [facility] Pneumococcal 7 2003-04-06 Completed [facility] of Conjugate, PCV7 00:00:00 [place] [facility] (Prevnar7) Branch IPV 2003-04-06 Completed [facility] of 00:00:00 [facility] DTaP, Unspecified 2003-04-06 Completed Univers ity of Formulation 00:00:00 [facility] HIB 4 Dose Schedule 2003-04-06 Completed Unive rsity of 00:00:00 [facility] Pneumococcal 7 2003-04-06 Completed [facility] of Conjugate, PCV7 00:00:00 [place] [facility] (Prevnar7) Branch IPV 2003-04-06 Completed [facility] of 00:00:00 [facility] DTaP, Unspecified 2003-04-06 Completed Univers ity of Formulation 00:00:00 [facility] HIB 4 Dose Schedule 2003-04-06 Completed Unive rsity of 00:00:00 [facility] Pneumococcal 7 2003-04-06 Completed University of Conjugate, PCV7 00:00:00 [place] [facility] (Prevnar7) Branch IPV 2003-04-06 Completed [facility] of 00:00:00 [facility] DTaP, Unspecified 2003-04-06 Completed [facility] ity of Formulation 00:00:00 [facility] HIB 4 Dose Schedule 2003-04-06 Completed Unive rsity of 00:00:00 [facility] Pneumococcal 7 2003-04-06 Completed [facility] of Conjugate, PCV7 00:00:00 [place] [facility] (Prevnar7) Branch IPV 2003-04-06 Completed [facility] of 00:00:00 [facility] DTaP, Unspecified 2003-04-06 Completed Univers ity of Formulation 00:00:00 [facility] HIB 4 Dose Schedule 2003-04-06 Completed Unive rsity of 00:00:00 [facility] Pneumococcal 7 2003-04-06 Completed [facility] of Conjugate, PCV7 00:00:00 [place] [facility] (Prevnar7) Branch IPV 2003-04-06 Completed [facility] of 00:00:00 [facility] DTaP, Unspecified 2003-04-06 Completed [facility] ity of Formulation 00:00:00 [facility] HIB 4 Dose Schedule 2003-04-06 Completed Unive rsity of 00:00:00 [facility] Pneumococcal 7 2003-04-06 Completed [facility] of Conjugate, PCV7 00:00:00 [place] [facility] (Prevnar7) Branch IPV 2003-04-06 Completed [facility] of 00:00:00 [facility] DTaP, Unspecified 2003-04-06 Completed [facility] ity of Formulation 00:00:00 [facility] HIB 4 Dose Schedule 2003-04-06 Completed Unive rsity of 00:00:00 [facility] Pneumococcal 7 2003-04-06 Completed [facility] of Conjugate, PCV7 00:00:00 [place] [facility] (Prevnar7) Branch IPV 2003-04-06 Completed [facility] of 00:00:00 [facility] DTaP, Unspecified 2002 Completed [facility] it[facility] of Formulation 00:00:00 [facility] Hep B, Adol or Pedi 2002 Completed Unive rsity of Dosage 00:00:00 [facility] Hib-HbOC 2002 Completed [facility] of 00:00:00 [facility] Pneumococcal 7 2002 Completed [facility] of Conjugate, PCV7 00:00:00 [place] [facility] (Prevnar7) Branch IPV 2002 Completed [facility] 00:00:00 [facility] DTaP, Unspecified 2002 Completed [facility] it[facility] Formulation 00:00:00 [facility] Hep B, Adol or Pedi 2002 Completed Unive rsity of Dosage 00:00:00 [facility] Hib-HbOC 2002 Completed [facility] of 00:00:00 [facility] Pneumococcal 7 2002 Completed [facility] of Conjugate, PCV7 00:00:00 [place] [facility] (Prevnar7) Branch IPV 2002 Completed [facility] of 00:00:00 [facility] DTaP, Unspecified 2002 Completed [facility] it[facility] of Formulation 00:00:00 [facility] Hep B, Adol or Pedi 2002 Completed Unive rsity of Dosage 00:00:00 [facility] Hib-HbOC 2002 Completed [facility] of 00:00:00 [facility] Pneumococcal 7 2002 Completed [facility] of Conjugate, PCV7 00:00:00 [place] [facility] (Prevnar7) Branch IPV 2002 Completed [facility] 00:00:00 [facility] DTaP, Unspecified 2002 Completed Univers it[facility] Formulation 00:00:00 [facility] Hep B, Adol or Pedi 2002 Completed Unive rsity of Dosage 00:00:00 [facility] Hib-HbOC 2002 Completed [facility] of 00:00:00 [facility] Pneumococcal 7 2002 Completed [facility] of Conjugate, PCV7 00:00:00 [place] [facility] (Prevnar7) Branch IPV 2002 Completed [facility] 00:00:00 [facility] DTaP, Unspecified 2002 Completed Univers it[facility] of Formulation 00:00:00 [facility] Hep B, Adol or Pedi 2002 Completed Unive rsity of Dosage 00:00:00 [facility] Hib-HbOC 2002 Completed [facility] of 00:00:00 [facility] Pneumococcal 7 2002 Completed [facility] of Conjugate, PCV7 00:00:00 [place] [facility] (Prevnar7) Branch IPV 2002 Completed [facility] 00:00:00 [facility] DTaP, Unspecified 2002 Completed Univers it[facility] of Formulation 00:00:00 [facility] Hep B, Adol or Pedi 2002 Completed Unive rsity of Dosage 00:00:00 [facility] Hib-HbOC 2002 Completed [facility] of 00:00:00 [facility] Pneumococcal 7 2002 Completed [facility] of Conjugate, PCV7 00:00:00 [place] [facility] (Prevnar7) Branch IPV 2002 Completed [facility] 00:00:00 [facility] DTaP, Unspecified 2002 Completed Univers it[facility] of Formulation 00:00:00 [facility] Hep B, Adol or Pedi 2002 Completed Unive rsity of Dosage 00:00:00 [facility] Hib-HbOC 2002 Completed [facility] of 00:00:00 [facility] Pneumococcal 7 2002 Completed [facility] of Conjugate, PCV7 00:00:00 [place] [facility] (Prevnar7) Branch IPV 2002 Completed [facility] 00:00:00 [facility] DTaP, Unspecified 2002 Completed Univers it[facility] Formulation 00:00:00 [facility] Hep B, Adol or Pedi 2002 Completed Unive rsity of Dosage 00:00:00 [facility] Hib-HbOC 2002 Completed University of 00:00:00 [facility] Pneumococcal 7 2002 Completed University of Conjugate, PCV7 00:00:00 [place] [facility] ([facility] IPV 2002 Completed University of 00:00:00 [facility] DTaP, Unspecified 2002 Completed Univers ity of Formulation 00:00:00 [facility] Hep B, Adol or Pedi 2002 Completed Unive rsity of Dosage 00:00:00 [facility] Hib-HbOC 2002 Completed University of 00:00:00 [facility] Pneumococcal 7 2002 Completed University of Conjugate, PCV7 00:00:00 [place] [facility] (Pre[facility] IPV 2002 Completed University of 00:00:00 [facility] DTaP, Unspecified 2002 Completed Univers ity of Formulation 00:00:00 [facility] HIB 4 Dose Schedule 2002 Completed Unive rsity of 00:00:00 [facility] Pneumococcal 7 2002 Completed University of Conjugate, PCV7 00:00:00 [place] [facility] (Pre[facility] IPV 2002 Completed University of 00:00:00 [facility] DTaP, Unspecified 2002 Completed Univers ity of Formulation 00:00:00 [facility] HIB 4 Dose Schedule 2002 Completed Unive rsity of 00:00:00 [facility] Pneumococcal 7 2002 Completed University of Conjugate, PCV7 00:00:00 [place] [facility] ([facility] IPV 2002 Completed University of 00:00:00 [facility] DTaP, Unspecified 2002 Completed Univers ity of Formulation 00:00:00 [facility] HIB 4 Dose Schedule 2002 Completed Unive rsity of 00:00:00 [facility] Pneumococcal 7 2002 Completed University of Conjugate, PCV7 00:00:00 [place] [facility] ([facility] IPV 2002 Completed University of 00:00:00 [facility] DTaP, Unspecified 2002 Completed Univers ity of Formulation 00:00:00 [facility] HIB 4 Dose Schedule 2002 Completed Unive rsity of 00:00:00 [facility] Pneumococcal 7 2002 Completed University of Conjugate, PCV7 00:00:00 [place] [facility] ([facility] IPV 2002 Completed University of 00:00:00 [facility] DTaP, Unspecified 2002 Completed Univers ity of Formulation 00:00:00 [facility] HIB 4 Dose Schedule 2002 Completed Unive rsity of 00:00:00 [facility] Pneumococcal 7 2002 Completed University of Conjugate, PCV7 00:00:00 [place] [facility] ([facility] IPV 2002 Completed University of 00:00:00 [facility] DTaP, Unspecified 2002 Completed Univers ity of Formulation 00:00:00 [facility] HIB 4 Dose Schedule 2002 Completed Unive rsity of 00:00:00 [facility] Pneumococcal 7 2002 Completed University of Conjugate, PCV7 00:00:00 [place] [facility] ([facility] IPV 2002 Completed University of 00:00:00 [facility] DTaP, Unspecified 2002 Completed Univers ity of Formulation 00:00:00 [facility] HIB 4 Dose Schedule 2002 Completed Unive rsity of 00:00:00 [facility] Pneumococcal 7 2002 Completed University of Conjugate, PCV7 00:00:00 [place] [facility] ([facility] IPV 2002 Completed University of 00:00:00 [facility] DTaP, Unspecified 2002 Completed Univers ity of Formulation 00:00:00 [facility] HIB 4 Dose Schedule 2002 Completed Unive rsity of 00:00:00 [facility] Pneumococcal 7 2002 Completed University of Conjugate, PCV7 00:00:00 [place] [facility] ([facility] IPV 2002 Completed University of 00:00:00 [facility] DTaP, Unspecified 2002 Completed Univers ity of Formulation 00:00:00 [facility] HIB 4 Dose Schedule 2002 Completed Unive rsity of 00:00:00 [facility] Pneumococcal 7 2002 Completed University of Conjugate, PCV7 00:00:00 [place] [facility] (Pre[facility] IPV 2002 Completed University of 00:00:00 [facility] Hep B, Adol or Pedi 2002 Completed Unive rsity of Dosage 00:00:00 [facility] Hep B, Adol or Pedi 2002 Completed Unive rsity of Dosage 00:00:00 [facility] Hep B, Adol or Pedi 2002 Completed Unive rsity of Dosage 00:00:00 [facility] Hep B, Adol or Pedi 2002 Completed Unive rsity of Dosage 00:00:00 [facility] Hep B, Adol or Pedi 2002 Completed Unive rsity of Dosage 00:00:00 [facility] Hep B, Adol or Pedi 2002 Completed Unive rsity of Dosage 00:00:00 [facility] Hep B, Adol or Pedi 2002 Completed Unive rsity of Dosage 00:00:00 [facility] Hep B, Adol or Pedi 2002 Completed Unive rsity of Dosage 00:00:00 [facility] Hep B, Adol or Pedi 2002 Completed Unive rsity of Dosage 00:00:00 [facility] Hep B, Adol or Pedi 2002 Completed Unive rsity of Dosage 00:00:00 [facility] Hep B, Adol or Pedi 2002 Completed Unive rsity of Dosage 00:00:00 [facility] Hep B, Adol or Pedi 2002 Completed Unive rsity of Dosage 00:00:00 [facility] Hep B, Adol or Pedi 2002 Completed Unive rsity of Dosage 00:00:00 [facility] Hep B, Adol or Pedi 2002 Completed Unive rsity of Dosage 00:00:00 [facility] Hep B, Adol or Pedi 2002 Completed Unive rsity of Dosage 00:00:00 [facility] Hep B, Adol or Pedi 2002 Completed Unive rsity of Dosage 00:00:00 [facility] Hep B, Adol or Pedi 2002 Completed Unive rsity of Dosage 00:00:00 [facility] Hep B, Adol or Pedi 2002 Completed Unive rsity of Dosage 00:00:00 [facility] Vital Signs Vital Name Observation Time Observation Value Comments Source Systolic blood 2022-07-24 18:34:00 127 mm[Hg] Univer sity of pressure [facility] Diastolic blood 2022-07-24 18:34:00 80 mm[Hg] Unive rsity of pressure [facility] Heart rate 2022-07-24 18:34:00 90 /min Universi ty of [facility] Body temperature 2022-07-24 18:34:00 35.89 [place]up[place] Univ ersity of [facility] Respiratory rate 2022-07-24 18:34:00 18 /min Univ ersity of [facility] Body height 2022-07-24 18:34:00 165.1 cm Universi ty of [facility] Body weight 2022-07-24 18:34:00 81.336 kg Universi ty of [facility] BMI 2022-07-24 18:34:00 29.84 kg/m2 Universi ty of [facility] Systolic blood 2022-04-01 19:21:00 136 mm[Hg] Univer sity of pressure [facility] Diastolic blood 2022-04-01 19:21:00 89 mm[Hg] Unive rsity of pressure [facility] Heart rate 2022-04-01 19:21:00 71 /min Universi ty of [facility] Body temperature 2022-04-01 19:20:00 36.44 [place]up[facility] Univ ers[facility] of [facility] Respiratory rate 2022-04-01 19:20:00 18 /min Univ ersity of [facility] Body height 2022-04-01 19:20:00 165.1 cm Universi ty of [facility] Body weight 2022-04-01 19:20:00 77.656 kg Universi ty of [facility] BMI 2022-04-01 19:20:00 28.49 kg/m2 [facility]i ty of [facility] Systolic blood 2022-03-10 19:27:00 141 mm[Hg] Univer sity of pressure [facility] Diastolic blood 2022-03-10 19:27:00 85 mm[Hg] Unive rsity of pressure [facility] Heart rate 2022-03-10 19:26:00 70 /min Universi ty of [facility] Body temperature 2022-03-10 19:26:00 36.56 [place] Univ ers[facility] of [facility] Respiratory rate 2022-03-10 19:26:00 18 /min Univ ersity of [facility] Body height 2022-03-10 19:26:00 165.1 cm [facility]i ty [facility] Body weight 2022-03-10 19:26:00 78.16 kg Universi ty of [facility] BMI 2022-03-10 19:26:00 28.67 kg/m2 [facility]i [facility] of [facility] Systolic blood 2022-02-17 14:00:00 124 mm[Hg] Univer sity of pressure [facility] Diastolic blood 2022-02-17 14:00:00 76 mm[Hg] Unive rsity of pressure [facility] Heart rate 2022-02-17 14:00:00 74 /min Universi ty of [facility] Body temperature 2022-02-17 14:00:00 36.61 [facility]up[facility] Univ [facility] Respiratory rate 2022-02-17 14:00:00 17 /min Univ ersity of [facility] Oxygen saturation in 2022-02-17 14:00:00 98 /min University of Arterial blood by [facility] Pulse oximetry Branch Body height 2022-02-16 00:32:00 165.1 cm Universi ty of [facility] Body weight 2022-02-16 00:32:00 87.998 kg Universi [facility] BMI 2022-02-16 00:32:00 32.28 kg/m2 [facility] Systolic blood 2022-02-15 15:10:00 137 mm[Hg] Univer sity of pressure [facility] Diastolic blood 2022-02-15 15:10:00 88 mm[Hg] Unive rsity of pressure [facility] Heart rate 2022-02-15 15:10:00 83 /min Universi ty [facility] Body temperature 2022-02-15 15:10:00 36.22 [facility] Univ [facility] Respiratory rate 2022-02-15 15:10:00 20 /min Univ ersity of [facility] Body height 2022-02-15 15:10:00 165.1 cm [facility]i [facility] Body weight 2022-02-15 15:10:00 88.134 kg [facility]i [facility] BMI 2022-02-15 15:10:00 32.33 kg/m2 [facility] Systolic blood 2022-02-08 05:00:00 118 mm[Hg] Univer sity of pressure [facility] Diastolic blood 2022-02-08 05:00:00 65 mm[Hg] Unive rsity of pressure [facility] Heart rate 2022-02-08 05:00:00 84 /min Universi ty of [facility] Respiratory rate 2022-02-08 05:00:00 16 /min Univ ersity of [facility] Oxygen saturation in 2022-02-08 05:00:00 97 /min University of Arterial blood by [facility] Pulse oximetry Branch Body temperature 2022-02-08 03:16:00 37.28 [place] Univ ers[facility] of [facility] Body height 2022-02-08 03:16:00 165.1 cm Universi ty [facility] Body weight 2022-02-08 03:16:00 87.272 kg [facility] BMI 2022-02-08 03:16:00 32.02 kg/m2 [facility] Systolic blood 2022-02-06 19:16:00 129 mm[Hg] Univer sity of pressure [facility] Diastolic blood 2022-02-06 19:16:00 81 mm[Hg] Unive rsity of pressure [facility] Heart rate 2022-02-06 19:16:00 74 /min Universi ty of [facility] Body temperature 2022-02-06 19:16:00 36.83 [facility] Univ [facility] Respiratory rate 2022-02-06 19:16:00 17 /min Univ ersity of [facility] Body height 2022-02-06 19:16:00 167.6 cm [facility]i [facility] Body weight 2022-02-06 19:16:00 89.223 kg [facility] ty of [facility] BMI 2022-02-06 19:16:00 31.75 kg/m2 [facility] ty of [facility] Systolic blood 2022-01-31 19:16:00 116 mm[Hg] Univer sity of pressure [facility] Diastolic blood 2022-01-31 19:16:00 78 mm[Hg] Unive rsity of pressure [facility] Heart rate 2022-01-31 19:16:00 90 /min Universi ty of [facility] Body temperature 2022-01-31 19:16:00 36.11 [facility] Univ [facility] Respiratory rate 2022-01-31 19:16:00 17 /min Univ ersity of [facility] Body height 2022-01-31 19:16:00 167.6 cm [facility] Body weight 2022-01-31 19:16:00 88.27 kg [facility] BMI 2022-01-31 19:16:00 31.41 kg/m2 [facility] Systolic blood 2022-01-09 14:27:00 122 mm[Hg] Univer sity of pressure [facility] Diastolic blood 2022-01-09 14:27:00 80 mm[Hg] Unive rsity of pressure [facility] Heart rate 2022-01-09 14:27:00 80 /min [facility]i [facility] Body temperature 2022-01-09 14:27:00 36.22 [facility] Univ [facility] Respiratory rate 2022-01-09 14:27:00 18 /min Univ ersity of [facility] Body height 2022-01-09 14:27:00 167.6 cm [facility] Body weight 2022-01-09 14:27:00 85.815 kg [facility] BMI 2022-01-09 14:27:00 30.54 kg/m2 [facility] Systolic blood 2021-12-26 13:55:00 130 mm[Hg] Univer sity of pressure [facility] Diastolic blood 2021-12-26 13:55:00 70 mm[Hg] Unive rsity of pressure [facility] Heart rate 2021-12-26 13:55:00 84 /min [facility]i [facility] Body temperature 2021-12-26 13:55:00 36.39 [facility] Respiratory rate 2021-12-26 13:55:00 16 /min Univ ersity of [facility] Body height 2021-12-26 13:55:00 167.6 cm [facility] Body weight 2021-12-26 13:55:00 84.414 kg [facility] BMI 2021-12-26 13:55:00 30.04 kg/m2 [facility] Systolic blood 2021-12-05 13:53:00 126 mm[Hg] Univer sity of pressure [facility] Diastolic blood 2021-12-05 13:53:00 79 mm[Hg] Unive rsity of pressure [facility] Heart rate 2021-12-05 13:53:00 77 /min [facility] Body temperature 2021-12-05 13:52:00 36.33 [place] Respiratory rate 2021-12-05 13:52:00 18 /min Univ ersity of [facility] Body height 2021-12-05 13:52:00 167.6 cm [facility] Body weight 2021-12-05 13:52:00 84.624 kg [facility] BMI 2021-12-05 13:52:00 30.11 kg/m2 [facility] Systolic blood 2021-11-21 15:32:00 100 mm[Hg] Univer sity of pressure [facility] Diastolic blood 2021-11-21 15:32:00 85 mm[Hg] Unive rsity of pressure [facility] Heart rate 2021-11-21 15:32:00 80 /min [facility] Body temperature 2021-11-21 15:32:00 36.56 [facility] Respiratory rate 2021-11-21 15:32:00 18 /min Univ ersity of [facility] Body weight 2021-11-21 15:32:00 82.736 kg [facility]i ty [facility] Systolic blood 2021-11-07 14:12:00 139 mm[Hg] Univer sity of pressure [facility] Diastolic blood 2021-11-07 14:12:00 71 mm[Hg] Unive rsity of pressure [facility] Heart rate 2021-11-07 14:12:00 78 /min [facility]i ty [facility] Body temperature 2021-11-07 14:12:00 36 [place] [facility] Respiratory rate 2021-11-07 14:12:00 18 /min Univ ersity of [facility] Body weight 2021-11-07 14:12:00 80.722 kg [facility] Systolic blood 2021-10-24 16:06:00 130 mm[Hg] Univer sity of pressure [facility] Diastolic blood 2021-10-24 16:06:00 73 mm[Hg] Unive rsity of pressure [facility] Heart rate 2021-10-24 16:06:00 81 /min [facility] ty [facility] Body temperature 2021-10-24 16:06:00 36.44 [place] Univ [facility] of [facility] Respiratory rate 2021-10-24 16:06:00 18 /min Univ ersity of [facility] Body height 2021-10-24 16:06:00 167.6 cm [facility] Body weight 2021-10-24 16:06:00 80.74 kg [facility] BMI 2021-10-24 16:06:00 28.73 kg/m2 [facility] Systolic blood 2021-10-07 16:55:00 118 mm[Hg] Univer sity of pressure [facility] Diastolic blood 2021-10-07 16:55:00 73 mm[Hg] Unive rsity of pressure [facility] Heart rate 2021-10-07 16:55:00 79 /min [facility]i ty of [facility] Body temperature 2021-10-07 16:55:00 36.44 [place] Univ [facility] of [facility] Respiratory rate 2021-10-07 16:55:00 18 /min Univ ersity of [facility] Body weight 2021-10-07 16:55:00 78.2 kg [facility] Systolic blood 2021-09-09 16:35:00 131 mm[Hg] Univer sity of pressure [facility] Diastolic blood 2021-09-09 16:35:00 74 mm[Hg] Unive rsity of pressure [facility] Heart rate 2021-09-09 16:35:00 84 /min [facility]i ty of [facility] Body temperature 2021-09-09 16:35:00 36.61 [place] Respiratory rate 2021-09-09 16:35:00 20 /min Univ ersity of [facility] Body height 2021-09-09 16:35:00 167.6 cm [facility] ty [facility] Body weight 2021-09-09 16:35:00 77.764 kg [facility] BMI 2021-09-09 16:35:00 27.67 kg/m2 [facility] Procedures Procedure Date / Time Performing Clinician Source Performed ASSIGNMENT OF BENEFITS 2022-07-24 18:27:53 Doctor Unassigned, No [facility] CENTRAL NEURAXIAL BLOCK 2022-02-16 02:54:22 [facility] CBC WITH DIFF 2022-02-16 00:43:00 [facility] HEPATITIS B SURFACE 2022-02-16 00:43:00 [facility] HB ABO GROUPING 2022-02-16 00:42:00 [facility] RHO (D) IMMUNE GLOBULIN 2022-02-16 00:42:00 [facility] ADC [facility] NILO ONLY - 2022-02-16 00:36:00 [facility] HIV 1/2 AG-AB WITH 2022-02-16 00:36:00 Len Woods [facility] REFLEX [facility] ASSIGNMENT OF BENEFITS 2022-02-15 22:42:29 Doctor Unassigned, No [facility] CONSENT/REFUSAL FOR 2022-02-15 22:38:59 [facility] Unassigned, [facility] PO[facility] URINALYSIS 2022-02-15 00:00:00 Melissa Yost [facility] URINALYSIS 2022-02-08 03:48:[address] [facility] LIPASE 2022-02-08 03:45:[address] [facility] COMP. METABOLIC PANEL 2022-02-08 03:45:[address] [facility] ([id number]) [facility] CBC WITH DIFF 2022-02-08 03:45:[address] [facility] CONSENT/REFUSAL FOR 2022-02-08 03:02:07 Doctor Unassigned, No [facility] NON-STRESS TEST 2022-02-07 02:36:07 [facility] 2022-02-06 00:00:00 Melissa Yost [facility] CBC WITH DIFF 2022-01-31 19:09:00 Melissa Yost [facility] GROUP B STREPTOCOCCUS BY 2022-01-31 19:09:00 Melissa Yost [facility] POCT URINALYSIS 2022-01-31 00:00:00 Melissa Yost [facility] POCT URINALYSIS 2022-01-09 14:28:00 Melissa Yost [facility] POCT URINALYSIS 2021-12-26 00:00:00 Melissa Yost [facility] POCT URINALYSIS 2021-12-05 13:54:00 Melissa Yost [facility] TDAP VACCINE, >11 YRS, 2021-12-05 13:37:43 Melissa Yost [facility] POCT URINALYSIS 2021-11-21 16:08:00 Melissa Yost [facility] POCT URINALYSIS 2021-11-07 14:14:00 Melissa Yost [facility] POCT URINALYSIS 2021-10-24 16:07:00 Melissa Yost [facility] POCT URINALYSIS 2021-10-07 16:36:00 Melissa Yost [facility] POCT URINALYSIS 2021-09-09 18:32:00 Melissa Yost [facility] Encounters Start End Encounter Admission Attending Care Care Encounter Source Date/Time Date/Time Type Type Clinicians Facility Department ID 2022-07-31 2022-07-31 Outpatient Roshan FLORES [facility] [id number] Univers 16:00[facility]00 [facility]07[facility] 2022-07-28 [facility] [id number] [id number] Univers 00:00:00 00:00:00 Management Kim Cross MAINTENANCE INSTRUCTOR [id number] ity of [facility] [id number] [place] as MATERNAL [id number] [address] 2022-07-24 2022-07-24 Outpatient R MARK [facility] [id number] Univers 13:30:00 14:03:15 KIM wilkerson [facility] 2022-07-24 2022-07-24 [facility] [id number] [id number] Univers 13:30:00 14:03:15 Visit Kim Cross MAINTENANCE INSTRUCTOR 350.1.13.10 i ty of [facility] 4.2.7.2.686 [place] as MATERNAL [id number] [address] 2022-07-24 2022-07-24 Orders Doctor WILLIE [id number] Univers 00:00:00 00:00:00 Only Unassigned, DYLAN 350.1.13.10 ity of [place] [address].686 [place] as [id number] [address] 2022-07-23 2022-07-23 Telephone [facility] [id number] [id number] Univers 00:00:00 00:00:00 Melissa Fam MAINTENANCE INSTRUCTOR 350.1.13.10 ity of [facility] 42.7.2.686 [place] as MATERNAL [id number] [facility] & CHILD [address] [place] [address] 2022-04-01 2022-04-01 Outpatient R RITIKA [facility] [id number] Univers 13:15:00 14:31:11 MELISSA luong f [facility] 2022-04-01 2022-04-01 [facility] [id number] Univers 13:15:00 14:31:11 Visit Melissa Fam MAINTENANCE INSTRUCTOR 350.1.13.10 ity of REGIONAL 4.2.7.2.686 [place] as MATERNAL [id number] [facility] ical & CHILD [address] [place] [address] 2022-03-19 2022-03-19 Outpatient R UNKNOWN, [facility] [id number] Univers 12:20:00 12:20:00 ATTENDING ity [facility] 2022-03-10 2022-03-10 Outpatient R RITIKA [facility] [id number] Univers 13:15:00 13:43:58 MELISSA ity o f [facility] 2022-03-10 2022-03-10 [facility] [id number] Univers 13:15:00 13:43:58 Melissa Fam MAINTENANCE INSTRUCTOR 350.1.13.10 ity of Visit [facility] [id number] [place] as MATERNAL [id number] [facility] & CHILD [address] [place] [address] 2022-02-15 2022-02-17 Hospital Len Woods [facility] [id number] [id number] Univers 16:45:00 17:38:00 Encounter Dwaine TIERNEY 350.1.13.10 ity of [place] 4.2.7.2.686 [facility] [id number] [address] 2022-02-15 2022-02-16 [facility]est[facility] 1.2.840.114 [id number] Univers 20:15:00 07:51:00 Event Willie TIERNEY 350.1.13.10 i ty of [place] 4.2.7.2.686 [facility] [id number] [address] 2022-02-15 2022-02-15 Outpatient R AUGUSTUS [facility] [id number] Univers 09:30:00 09:31:52 GINA wilkerson [facility] 2022-02-15 2022-02-15 Routine Provider, Raymundo Temjet [facility] 1 .2.840.114 [id number] Univers 09:30:00 09:31:52 Gina Christensen MAINTENANCE INSTRUCTOR 350.1.13.10 ity of Visit [facility] 4.2.7.2.686 [place] as MATERNAL [id number] Med ical & CHILD 107 [facility] 2022-02-15 2022-02-15 Outpatient R AUGUSTUS [facility] SONIA [id number] Univers 09:30:00 09:31:52 GINA ity [facility] 2022-02-15 2022-02-15 Orders Doctor WILLIE [id number] [id number] Univers 00:00:00 00:00:00 Only Unassigned, DYLAN 350.1.13.10 ity of [place] [facility] 4.2.7.2.686 [place] as [id number] [facility] [address] [place] 2022-02-07 2022-02-07 Emergency X [facility] ERT [id number] Univers 21:23:00 23:16:00 [facility] 2022-02-07 2022-02-07 Emergency [facility] 1.2.924.176 [id number] Univers 21:23:00 23:16:00 Phan [facility] 350.1.13.10 ity of [place] 4.2.7.2.686 [facility] [phone] [facility] 0[address] [place] 2022-02-07 2022-02-07 Telephone [facility] 1.2.840.114 [id number] Univers 00:00:00 00:00:00 Melissa Fam MAINTENANCE INSTRUCTOR 350.1.13.10 ity of [facility] 4.2.7.2.686 [place] as MATERNAL [id number] Med ical & CHILD [address] [place] [address] 2022-02-06 2022-02-06 Outpatient R MARK [facility] [id number] Univers 13:00:00 14:15:36 KIM wilkerson [facility] 2022-02-06 2022-02-06 Routine Provider, [facility] 1 .2.840.114 [id number] Univers 13:00:00 14:15:36 Kim Flores MAINTENANCE INSTRUCTOR 350.1.13. 10 ity of Visit REGIONAL 4.2.7.2.686 [place] as MATERNAL [phone] Med ical & CHILD [address] [place] [address] 2022-01-31 2022-01-31 Outpatient R MARK [facility] [id number] Univers 13:00:00 13:31:36 KIM wilkerson [facility] 2022-01-31 2022-01-31 Routine Provider, Raymundo [facility] 1 .2.840.114 [id number] Univers 13:00:00 13:31:36 Kim Flores MAINTENANCE INSTRUCTOR 350.1.13. 10 ity of Visit REGIONAL 4.2.7.2.686 [place] as MATERNAL [id number] [facility] & CHILD [address] [place] [address] 2022-01-26 2022-01-26 Nurse WILLIE Jimenez 1.2.840.114 [id number] Univers 00:00:00 00:00:00 Triage Ian RICHARDSON 350.1.13.10 ity of [facility] 4.2.7.2.686 [place] as [phone] [address] 2022-01-21 2022-01-21 Outpatient R RITIKA, [facility] [id number] Univers 10:00:00 10:00:00 MELISSA luong [facility] 2022-01-09 2022-01-09 Outpatient R RITIKA, [facility] [id number] Univers 08:30:00 08:49:30 MELISSA kramer [facility] 2022-01-09 2022-01-09 Routine Melissa Yost [facility] 1.2.8 40.114 [id number] Univers 08:30:00 08:49:30 Cole Shannanhaylie Islas MAINTENANCE INSTRUCTOR 350.1.13.1 0 ity of Visit REGIONAL 4.2.7.2.686 [place] as MATERNAL [id number] [facility] & [address] 2021-12-26 2021-12-26 Outpatient R MARK [facility] [id number] Univers 08:45:00 09:18:49 [facility] 2021-12-26 2021-12-26 Routine Provider, Raymundo [facility] 1 .2.840.114 [id number] Univers 08:45:00 09:18:49 Shani Cole R MAINTENANCE INSTRUCTOR 350.1.13.1 0 ity of Visit Kim Flores REGIONAL 4.2.7.2.686 [place] MATERNAL [id number] Med ical & CHILD [address] [place] [address] 2021-12-19 2021-12-19 Outpatient R AKINSIPE, [facility] [id number] Univers 08:15:00 08:15:00 MELISSA ity o f [facility] 2021-12-05 2021-12-05 Outpatient R AKINSIPE, [facility] [id number] Univers 08:30:00 09:18:59 MELISSA ity o f [facility] 2021-12-05 2021-12-05 [facility]ine [facility] 1.2.643.315 [id number] Univers 08:30:00 09:18:59 Melissa C MAINTENANCE INSTRUCTOR 350.1.13.10 ity of Visit REGIONAL 4.2.7.2.686 [place] as MATERNAL [id number] [facility] & CHILD [address] [place] [address] 2021-11-21 2021-11-21 Outpatient R AKINEMMAPE, [facility] [id number] Univers 10:30:00 11:19:50 MELISSA ity o f [facility] 2021-11-21 2021-11-21 [facility]ine [facility] 1.2.086.212 [id number] Univers 10:30:00 11:19:50 Melissa C MAINTENANCE INSTRUCTOR 350.1.13.10 ity of Visit REGIONAL 4.2.7.2.686 [place] as MATERNAL [id number] [facility] ical & CHILD [address] [place] [address] 2021-11-08 2021-11-08 Abstract [facility] 1.2.840.114 [id number] Univers 00:00:00 00:00:00 Melissa C MAINTENANCE INSTRUCTOR 350.1.13.10 ity of REGIONAL 4.2.7.2.686 [place] as MATERNAL [id number] [facility] ical & CHILD [address] [place] [address] 2021-11-07 2021-11-07 [facility]ine [facility] 1.2.840.114 [id number] Univers 11:00:00 11:00:00 Rubianda R MAINTENANCE INSTRUCTOR 350.1.13.10 ity of Visit REGIONAL 4.2.7.2.686 [place] as MATERNAL [id number] [facility] & CHILD [address] [place] [address] 2021-11-07 2021-11-07 Outpatient Roshan COLE [facility] [id number] Univers 11:00:00 09:51:30 ROSSEYMOURNDA ity o f [facility] 2021-11-07 2021-11-07 Senior Grants Officer [facility] 1.2 .840.114 [id number] Univers 08:30:00 09:15:00 Visit Juan Miguel Arias MAINTENANCE INSTRUCTOR 350.1.13.10 ity of REGIONAL 4.2.7.2.686 [place] as MATERNAL [id number] [facility] & CHILD [address] [facility] 2021-11-06 2021-11-06 Telephone [facility] 1.2.840.114 [id number] Univers 00:00:00 00:00:00 Melissa C MAINTENANCE INSTRUCTOR 350.1.13.10 ity of REGIONAL 4.2.7.2.686 [place] as MATERNAL [id number] [facility] & CHILD [address] [place] [address] 2021-10-24 2021-10-24 [facility] [id number] Univers 10:30:00 11:39:04 MELISSA ity o f [facility] 2021-10-24 2021-10-24 Routine [facility] 1.2.294.229 [id number] Univers 10:30:00 11:39:04 Melissa C MAINTENANCE INSTRUCTOR 350.1.13.10 ity of Visit REGIONAL 4.2.7.2.686 [place] as MATERNAL [id number] [facility] & CHILD [address] [place] [address] 2021-10-22 2021-10-22 Telephone [facility] 1.2.840.114 [id number] Univers 00:00:00 00:00:00 Melissa C MAINTENANCE INSTRUCTOR 350.1.13.10 ity of REGIONAL 4.2.7.2.686 [place] as MATERNAL [id number] [facility] & CHILD [address] [place] [address] 2021-10-07 2021-10-07 Outpatient [facility] [id number] Univers 11:00:00 11:53:52 MELISSA ity o f [facility] 2021-10-07 2021-10-07 Routine [facility] 1.2.528.481 [id number] Univers 11:00:00 11:53:52 Melissa C MAINTENANCE INSTRUCTOR 350.1.13.10 ity of Visit REGIONAL 4.2.7.2.686 [place] as MATERNAL [id number] [address] 2021-10-07 2021-10-07 Outpatient R [facility] [id number] Univers 11:00:00 11:00:00 MELISSA mauriy o f [facility] 2021-09-27 2021-09-27 Abstract [facility] 1.2.840.114 [id number] Univers 00:00:00 00:00:00 Melissa C MAINTENANCE INSTRUCTOR 350.1.13.10 ity of REGIONAL 4.2.7.2.686 [place] as MATERNAL [id number] [facility] & CHILD [address] [place] [address] 2021-09-26 2021-09-26 Outpatient P [facility] [id number] Univers 13:00:00 13:00:00 ity of [facility] 2021-09-26 2021-09-26 Outpatient P [facility] [id number] Univers 13:00:00 13:00:00 ity [facility] 2021-09-26 2021-09-26 Senior Grants Officer [facility]tras[facility] 1.2 .840.114 [id number] Univers 11:00:00 12:00:00 Visit Juan Miguel Arias MAINTENANCE INSTRUCTOR 350.1.13.10 ity of REGIONAL 4.2.7.2.686 [place] as MATERNAL [id number] [facility] & CHILD [address] [place] [address] 2021-09-26 2021-09-26 Outpatient P CJ, [facility] [id number] Univers 11:00:00 11:00:00 JUAN MIGUEL [facility] 2021-09-09 2021-09-09 Routine Akinsipe, [facility] 1.2.628.316 [id number] Univers 10:45:00 12:14:59 Melissa C MAINTENANCE INSTRUCTOR 350.1.13.10 ity of Visit [facility] 4.2.7.2.686 [place] as MATERNAL [phone] Med ical & CHILD 107 [facility] 2021-09-09 2021-09-09 Outpatient R AKINSIPE, [facility] [id number] Univers 10:45:00 12:14:59 MELISSA ity o [facility] 2021-09-09 2021-09-09 Outpatient R AKINSIPE, [facility] [id number] Univers 10:45:00 12:14:59 MELISSA ity o [facility] 2021-09-09 2021-09-09 Outpatient R AKINSIPE, [facility] [id number] Univers 10:45:00 10:45:00 MELISSA ity o [facility] 2021-08-27 2021-08-27 Outpatient R COLE, [facility] [id number] Univers 08:15:00 08:15:00 ROSHUNDA ity o [facility] 2021-08-23 2021-08-23 Outpatient R AKINSIPE, [facility] [id number] Univers 08:15:00 08:15:00 MELISSA ity o f [facility] 2021-08-21 2021-08-21 Outpatient R AKINSIPE, [facility] [id number] Univers 08:00:00 08:00:00 MELISSA ity o [facility] 2021-08-21 2021-08-21 Outpatient R [facility] [id number] Univers 08:00:00 08:00:00 ity [facility] 2021-08-20 2021-08-20 Abstract Akinemmape, [facility] 1.2.840.114 [id number] Univers 00:00:00 00:00:00 Melissa C MAINTENANCE INSTRUCTOR 350.1.13.10 ity of REGIONAL 4.2.7.2.686 [place] as MATERNAL [id number] [facility] & [address] 2021-08-19 2021-08-19 Outpatient [facility] [id number] Univers 17:00:00 17:40:25 ROSHUNDA ity o f [facility] 2021-08-19 2021-08-19 Routine [facility] 1.2.840.114 [id number] Univers 17:00:00 17:40:25 Roshunda R MAINTENANCE INSTRUCTOR 350.1.13.10 ity of Visit REGIONAL 4.2.7.2.686 [place] as MATERNAL [id number] [address] 2021-08-16 2021-08-16 Outpatient P [facility] [id number] Univers 09:00:00 09:00:00 ity [facility] 2021-08-16 2021-08-16 Outpatient P [facility] [id number] Univers 09:00:00 09:00:00 ity [facility] 2021-08-16 2021-08-16 Telephone [facility] 1.2.840.114 [id number] Univers 00:00:00 00:00:00 Melissa C MAINTENANCE INSTRUCTOR 350.1.13.10 ity of REGIONAL 4.2.7.2.686 [place] as MATERNAL [id number] [address] 2021-08-15 2021-08-15 Senior Grants Officer 5, [facility] Us Room [facility] 1 .2.840.114 [id number] Univers 14:00:00 14:45:00 Visit Kassy Quach [facility] 350.1.13.10 ity of CLIN[place] [id number] [address] 2021-08-15 2021-08-15 Out[facility] [id number] Univers 14:00:00 14:00:00 KASSY wilkerson [facility] 2021-08-09 2021-08-09 Routine Akinpe, [facility] 1.2.311.184 [id number] Univers 09:45:00 10:00:00 Melissa C MAINTENANCE INSTRUCTOR 350.1.13.10 ity of Visit REGIONAL 4.2.7.2.686 [place] as MATERNAL [id number] [facility]ILD [address] [place] [address] 2021-08-09 2021-08-09 Outpatient R AKINSIPE, [facility] [id number] Univers 09:45:00 09:45:00 MELISSA ity o f [facility] 2021-08-09 2021-08-09 Outpatient R AKINSIPE, [facility] [id number] Univers 09:45:00 09:45:00 MELISSA ity o f [facility] 2021-07-15 2021-07-15 Telephone [facility] 1.2.840.114 [id number] Univers 00:00:00 00:00:00 Melissa C 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 350.1.13.10 ity of REGIONAL 4.2.7.2.686 [place] as MATERNAL [id number] [facility] & CHILD [address] [place] [address] 2021-07-12 2021-07-12 Initial [facility] 1.2.623.057 [id number] Univers 10:00:00 11:05:35 Melissa C MAINTENANCE INSTRUCTOR 350.1.13.10 ity of Visit REGIONAL 4.2.7.2.686 [place] as MATERNAL [id number] [facility] & CHILD [address] [place] [address] 2021-07-12 2021-07-12 Outpatient R AKINSIPE, [facility] [id number] Univers 10:00:00 11:05:35 MELISSA ity o f [facility] 2021-07-12 2021-07-12 [facility] [id number] Univers 09:30:00 10:02:36 MELISSA ity o f [facility] 2021-07-12 2021-07-12 Margaret TAPIA 1.2.840.114 [id number] Univers 00:00:00 00:00:00 Only Unassigned, DYLAN 350.1.13.10 ity of [facility] 4.2.7.2.686 [place] as [phone] [address] Results Test Description Test Time Test Comments Results Result Comments Source RHO (D) IMMUNE GLOBULIN 2022-02-16 10:58:04 Test Item Value Reference Range Interpretation Comme nts RHIG CANDIDATE? (test code = No- see comment Patient is not a candidate for RhIg- 5055) Patient is Rh P ositive.Performed at [facility] Laboratory Services - [facility] Blood [address] [id number] Free: [phone] A No. [id number] [facility] Surface [id number] 07:36:11 Test Item Value Reference Range Interpretation Comments HBsAg Semi-Quantitative (test code = Negative Negative 5195-3) [facility] NILO ONLY - [id number] 05:20:04 Test Item Value Reference Range Interpretation Comments RPR (Qualitative) (test code = Nonreactive Nonreactive 34077-2) Lab Interpretation (test code = Normal 52670-3) [facility]/2 AG-AB WITH [id number] 02:54:19 Test Item Value Reference Range Interpretation Comments HIV Negative Negative Semi-quantitative (test code = 55661-8) HARI (test code = Non-reactive for HIV-1 HARI) antigen and HIV-1/HIV-2 antibodies. ?No laboratory evidence of HIV infection. ?Repeat in 2-4 weeks if acute HIV infection is suspected. [facility] and Screen - ONCE [id number] 01:32:48 Test Item Value Reference Range Interpretation Comments ABO & RH (test code O Positive Performe d at [facility] = 20) Laboratory Serv [facility] Blood Bank1 [address] [id number] Free: [phone] A No. [id number] IAT (test code = Negative Performed a t [facility] 1185) Laboratory Serv [facility] Blood Bank1 [address] [id number] Free: [phone] A No. [id number] General acute hospital with [id number] 00:56:58 Test Item Value Reference Range Interpretation Comments WBC (test code = See_Comment [Automated 6690-2) message] The sy stem which generated this result transmitted reference range : 4.30 - 11.10 10*3/?L. The reference range was not used to interpret this result as normal/abnormal . RBC (test code = See_Comment L [Automated 789-8) message] The sy stem which generated this result transmitted reference range : 3.93 - 5.25 10*6/?L. The reference range was not used to interpret this result as normal/abnormal . HGB (test code = 10.8 g/dL 11.6-15.0 L 718-7) HCT (test code = 31.5 % 35.7-45.2 L 4544-3) MCV (test code = 87.0 fL 80.6-95.5 787-2) MCH (test code = 29.8 pg 25.9-32.8 785-6) MCHC (test code = 34.3 g/dL 31.6-35.1 786-4) RDW-SD (test code = 43.1 fL 39.0-49.9 39755-5) RDW-CV (test code = 14.1 % 12.0-15.5 788-0) PLT (test code = See_Comment [Automated 777-3) message] The sy stem which generated this result transmitted reference range : 166 - 358 10*3/ ?L. The reference r krista was not used to interpret this result as normal/abnormal . MPV (test code = 11.0 fL 9.5-12.9 55087-1) NRBC/100 WBC (test See_Comment [Automat ed code = [id number]) message] The system which generated this result transmitted reference range : 0.0 - 10.0 /100 WBCs. The refer ence range was not u sed to interpret th is result as normal/abnormal . NRBC x10^3 (test code See_Comment [Auto mated = 7757161295) message] The s ystem which generated this result transmitted reference range : 10*3/?L. The reference range was not used to interpret this result as normal/abnormal . GRAN MAT (NEUT) % 72.8 % (test code = 770-8) IMM GRAN % (test code 0.20 % = 5190114620) LYMPH % (test code = 17.8 % 736-9) MONO % (test code = 7.6 % 5905-5) EOS % (test code = 1.4 % 713-8) BASO % (test code = 0.2 % 706-2) GRAN MAT x10^3(ANC) 6.46 10*3/uL 1.88-7.09 (test code = 4580448411) IMM GRAN x10^3 (test 0.00-0.06 code = 5487571254) LYMPH x10^3 (test code 1.58 10*3/uL 1.32-3.29 = 731-0) MONO x10^3 (test code 0.67 10*3/uL 0.33-0.92 = 742-7) EOS x10^3 (test code = 0.12 10*3/uL 0.03-0.39 711-2) BASO x10^3 (test code 0.01-0.07 = 704-7) Lab Interpretation Abnormal (test code = 08951-7) [facility] URINALYSIS W SPECIFIC [id number] 15:11:00 Test Item Value Reference Range Interpretation Comments POCT U SP GRAV (test code = . 1.005-1.025 3255) POCT PH U (test code = 3254) . 5-8 POCT U LEUK EST (test code = . Negative - Negative 3263) POCT U NIT (test code = 3262) . Negative - Negative POCT U PROT (test code = 3259) trace Negative - Negative POCT U GLU (test code = 3256) negative Negative - Negative POCT U KETONE (test code = 3258) . Negative - Negative POCT U UROBILI (test code = . 0.2-1 3260) POCT U BILI (test code = 3261) . Negative - Negative POCT U BLD (test code = 3257) . Negative - Negative POCT U COLOR (test code = 3266) . POCT U APPEAR (test code = 3267) . [facility] URINALYSIS W SPECIFIC [id number] 19:17:00 Test Item Value Reference Range Interpretation Comments POCT U SP GRAV (test code = 3255) . 1.005-1.025 POCT PH U (test code = 3254) . 5-8 POCT U LEUK EST (test code = 3263) . Negative - Negative POCT U NIT (test code = 3262) . Negative - Negative POCT U PROT (test code = 3259) trace Negative - Negative POCT U GLU (test code = 3256) normal Negative - Negative POCT U KETONE (test code = 3258) . Negative - Negative POCT U UROBILI (test code = 3260) . 0.2-1 POCT U BILI (test code = 3261) . Negative - Negative POCT U BLD (test code = 3257) . Negative - Negative POCT U COLOR (test code = 3266) . POCT U APPEAR (test code = 3267) . [facility] URINALYSIS W SPECIFIC [id number] 19:19:00 Test Item Value Reference Range Interpretation Comments POCT U SP GRAV (test code = 3255) . 1.005-1.025 POCT PH U (test code = 3254) . 5-8 POCT U LEUK EST (test code = 3263) . Negative - Negative POCT U NIT (test code = 3262) . Negative - Negative POCT U PROT (test code = 3259) trace Negative - Negative POCT U GLU (test code = 3256) normal Negative - Negative POCT U KETONE (test code = 3258) . Negative - Negative POCT U UROBILI (test code = 3260) . 0.2-1 POCT U BILI (test code = 3261) . Negative - Negative POCT U BLD (test code = 3257) . Negative - Negative POCT U COLOR (test code = 3266) . POCT U APPEAR (test code = 3267) . [facility] URINALYSIS W SPECIFIC [id number] 14:28:00 Test Item Value Reference Range Interpretation Comments POCT U SP GRAV (test code = 3255) . 1.005-1.025 POCT PH U (test code = 3254) . 5-8 POCT U LEUK EST (test code = 3263) . Negative - Negative POCT U NIT (test code = 3262) . Negative - Negative POCT U PROT (test code = 3259) Trace Negative - Negative POCT U GLU (test code = 3256) Neg Negative - Negative POCT U KETONE (test code = 3258) . Negative - Negative POCT U UROBILI (test code = 3260) . 0.2-1 POCT U BILI (test code = 3261) . Negative - Negative POCT U BLD (test code = 3257) . Negative - Negative POCT U COLOR (test code = 3266) . POCT U APPEAR (test code = 3267) [facility] URINALYSIS W SPECIFIC [id number] 14:28:00 Test Item Value Reference Range Interpretation Comments POCT U SP GRAV (test code = 3255) . 1.005-1.025 POCT PH U (test code = 3254) . 5-8 POCT U LEUK EST (test code = 3263) . Negative - Negative POCT U NIT (test code = 3262) . Negative - Negative POCT U PROT (test code = 3259) Trace Negative - Negative POCT U GLU (test code = 3256) Neg Negative - Negative POCT U KETONE (test code = 3258) . Negative - Negative POCT U UROBILI (test code = 3260) . 0.2-1 POCT U BILI (test code = 3261) . Negative - Negative POCT U BLD (test code = 3257) . Negative - Negative POCT U COLOR (test code = 3266) . POCT U APPEAR (test code = 3267) [facility] URINALYSIS W SPECIFIC [id number] 14:28:00 Test Item Value Reference Range Interpretation Comments POCT U SP GRAV (test code = 3255) . 1.005-1.025 POCT PH U (test code = 3254) . 5-8 POCT U LEUK EST (test code = 3263) . Negative - Negative POCT U NIT (test code = 3262) . Negative - Negative POCT U PROT (test code = 3259) Trace Negative - Negative POCT U GLU (test code = 3256) Neg Negative - Negative POCT U KETONE (test code = 3258) . Negative - Negative POCT U UROBILI (test code = 3260) . 0.2-1 POCT U BILI (test code = 3261) . Negative - Negative POCT U BLD (test code = 3257) . Negative - Negative POCT U COLOR (test code = 3266) . POCT U APPEAR (test code = 3267) [facility] URINALYSIS W SPECIFIC [id number] 13:58:00 Test Item Value Reference Range Interpretation Comments POCT U SP GRAV (test code = . 1.005-1.025 3255) POCT PH U (test code = 3254) 7 mg/dl 5-8 POCT U LEUK EST (test code = negative Negative - Negative 3263) POCT U NIT (test code = 3262) negative Negative - Negative POCT U PROT (test code = 3259) trace Negative - Negative POCT U GLU (test code = 3256) negative Negative - Negative POCT U KETONE (test code = 3258) negative Negative - Negative POCT U UROBILI (test code = . 0.2-1 3260) POCT U BILI (test code = 3261) . Negative - Negative POCT U BLD (test code = 3257) negative Negative - Negative POCT U COLOR (test code = 3266) yellow POCT U APPEAR (test code = 3267) clear [facility] URINALYSIS W SPECIFIC [id number] 13:54:00 Test Item Value Reference Range Interpretation Comments POCT U SP GRAV (test code = 3255) . 1.005-1.025 POCT PH U (test code = 3254) . 5-8 POCT U LEUK EST (test code = 3263) . Negative - Negative POCT U NIT (test code = 3262) . Negative - Negative POCT U PROT (test code = 3259) 1+ Negative - Negative POCT U GLU (test code = 3256) Neg Negative - Negative POCT U KETONE (test code = 3258) . Negative - Negative POCT U UROBILI (test code = 3260) . 0.2-1 POCT U BILI (test code = 3261) . Negative - Negative POCT U BLD (test code = 3257) . Negative - Negative POCT U COLOR (test code = 3266) POCT U APPEAR (test code = 3267) [facility] URINALYSIS W SPECIFIC [id number] 13:54:00 Test Item Value Reference Range Interpretation Comments POCT U SP GRAV (test code = 3255) . 1.005-1.025 POCT PH U (test code = 3254) . 5-8 POCT U LEUK EST (test code = 3263) . Negative - Negative POCT U NIT (test code = 3262) . Negative - Negative POCT U PROT (test code = 3259) 1+ Negative - Negative POCT U GLU (test code = 3256) Neg Negative - Negative POCT U KETONE (test code = 3258) . Negative - Negative POCT U UROBILI (test code = 3260) . 0.2-1 POCT U BILI (test code = 3261) . Negative - Negative POCT U BLD (test code = 3257) . Negative - Negative POCT U COLOR (test code = 3266) POCT U APPEAR (test code = 3267) [facility] URINALYSIS W SPECIFIC [id number] 16:08:00 Test Item Value Reference Range Interpretation Comments POCT U SP GRAV (test code = * 1.005-1.025 3255) POCT PH U (test code = 3254) * 5-8 POCT U LEUK EST (test code = * Negative - Negative 3263) POCT U NIT (test code = 3262) Negative - Negative POCT U PROT (test code = 3259) trace Negative - Negative POCT U GLU (test code = 3256) negative Negative - Negative POCT U KETONE (test code = 3258) * Negative - Negative POCT U UROBILI (test code = * 0.2-1 3260) POCT U BILI (test code = 3261) * Negative - Negative POCT U BLD (test code = 3257) * Negative - Negative POCT U COLOR (test code = 3266) * POCT U APPEAR (test code = 3267) [facility] URINALYSIS W SPECIFIC [id number] 16:08:00 Test Item Value Reference Range Interpretation Comments POCT U SP GRAV (test code = * 1.005-1.025 3255) POCT PH U (test code = 3254) * 5-8 POCT U LEUK EST (test code = * Negative - Negative 3263) POCT U NIT (test code = 3262) Negative - Negative POCT U PROT (test code = 3259) trace Negative - Negative POCT U GLU (test code = 3256) negative Negative - Negative POCT U KETONE (test code = 3258) * Negative - Negative POCT U UROBILI (test code = * 0.2-1 3260) POCT U BILI (test code = 3261) * Negative - Negative POCT U BLD (test code = 3257) * Negative - Negative POCT U COLOR (test code = 3266) * POCT U APPEAR (test code = 3267) [facility] URINALYSIS W SPECIFIC [id number] 16:08:00 Test Item Value Reference Range Interpretation Comments POCT U SP GRAV (test code = * 1.005-1.025 3255) POCT PH U (test code = 3254) * 5-8 POCT U LEUK EST (test code = * Negative - Negative 3263) POCT U NIT (test code = 3262) Negative - Negative POCT U PROT (test code = 3259) trace Negative - Negative POCT U GLU (test code = 3256) negative Negative - Negative POCT U KETONE (test code = 3258) * Negative - Negative POCT U UROBILI (test code = * 0.2-1 3260) POCT U BILI (test code = 3261) * Negative - Negative POCT U BLD (test code = 3257) * Negative - Negative POCT U COLOR (test code = 3266) * POCT U APPEAR (test code = 3267) [facility] URINALYSIS W SPECIFIC [id number] 16:08:00 Test Item Value Reference Range Interpretation Comments POCT U SP GRAV (test code = * 1.005-1.025 3255) POCT PH U (test code = 3254) * 5-8 POCT U LEUK EST (test code = * Negative - Negative 3263) POCT U NIT (test code = 3262) Negative - Negative POCT U PROT (test code = 3259) trace Negative - Negative POCT U GLU (test code = 3256) negative Negative - Negative POCT U KETONE (test code = 3258) * Negative - Negative POCT U UROBILI (test code = * 0.2-1 3260) POCT U BILI (test code = 3261) * Negative - Negative POCT U BLD (test code = 3257) * Negative - Negative POCT U COLOR (test code = 3266) * POCT U APPEAR (test code = 3267) [facility] URINALYSIS W SPECIFIC [id number] 16:08:00 Test Item Value Reference Range Interpretation Comments POCT U SP GRAV (test code = * 1.005-1.025 3255) POCT PH U (test code = 3254) * 5-8 POCT U LEUK EST (test code = * Negative - Negative 3263) POCT U NIT (test code = 3262) Negative - Negative POCT U PROT (test code = 3259) trace Negative - Negative POCT U GLU (test code = 3256) negative Negative - Negative POCT U KETONE (test code = 3258) * Negative - Negative POCT U UROBILI (test code = * 0.2-1 3260) POCT U BILI (test code = 3261) * Negative - Negative POCT U BLD (test code = 3257) * Negative - Negative POCT U COLOR (test code = 3266) * POCT U APPEAR (test code = 3267) [facility] URINALYSIS W SPECIFIC [id number] 14:14:00 Test Item Value Reference Range Interpretation Comments POCT U SP GRAV (test code = * 1.005-1.025 3255) POCT PH U (test code = 3254) 7 mg/dl 5-8 POCT U LEUK EST (test code = 3+ Negative - Negative 3263) POCT U NIT (test code = 3262) negative Negative - Negative POCT U PROT (test code = 3259) 1+ Negative - Negative POCT U GLU (test code = 3256) negative Negative - Negative POCT U KETONE (test code = 3258) negative Negative - Negative POCT U UROBILI (test code = * 0.2-1 3260) POCT U BILI (test code = 3261) * Negative - Negative POCT U BLD (test code = 3257) * Negative - Negative POCT U COLOR (test code = 3266) POCT U APPEAR (test code = 3267) [facility] URINALYSIS W SPECIFIC [id number] 16:08:00 Test Item Value Reference Range Interpretation Comments POCT U SP GRAV (test code = 3255) . 1.005-1.025 POCT PH U (test code = 3254) . 5-8 POCT U LEUK EST (test code = 3263) . Negative - Negative POCT U NIT (test code = 3262) . Negative - Negative POCT U PROT (test code = 3259) 1+ Negative - Negative POCT U GLU (test code = 3256) Neg Negative - Negative POCT U KETONE (test code = 3258) . Negative - Negative POCT U UROBILI (test code = 3260) . 0.2-1 POCT U BILI (test code = 3261) . Negative - Negative POCT U BLD (test code = 3257) . Negative - Negative POCT U COLOR (test code = 3266) . POCT U APPEAR (test code = 3267) . [facility] URINALYSIS W SPECIFIC [id number] 16:36:00 Test Item Value Reference Range Interpretation Comments POCT U SP GRAV (test code = 3255) . 1.005-1.025 POCT PH U (test code = 3254) . 5-8 POCT U LEUK EST (test code = 3263) . Negative - Negative POCT U NIT (test code = 3262) . Negative - Negative POCT U PROT (test code = 3259) 1+ Negative - Negative POCT U GLU (test code = 3256) Neg Negative - Negative POCT U KETONE (test code = 3258) . Negative - Negative POCT U UROBILI (test code = 3260) . 0.2-1 POCT U BILI (test code = 3261) . Negative - Negative POCT U BLD (test code = 3257) . Negative - Negative POCT U COLOR (test code = 3266) . POCT U APPEAR (test code = 3267) . [facility] URINALYSIS W SPECIFIC [id number] 18:32:00 Test Item Value Reference Range Interpretation Comments POCT U SP GRAV (test code = 3255) . 1.005-1.025 POCT PH U (test code = 3254) . 5-8 POCT U LEUK EST (test code = 3263) . Negative - Negative POCT U NIT (test code = 3262) . Negative - Negative POCT U PROT (test code = 3259) Trace Negative - Negative POCT U GLU (test code = 3256) Neg Negative - Negative POCT U KETONE (test code = 3258) . Negative - Negative POCT U UROBILI (test code = 3260) . 0.2-1 POCT U BILI (test code = 3261) . Negative - Negative POCT U BLD (test code = 3257) . Negative - Negative POCT U COLOR (test code = 3266) . POCT U APPEAR (test code = 3267) . [facility]
--- NOTE | 2022-08-21 18:07 | RAD REPORT ---
EXAM DESCRIPTION: US - Pelvis Complete - 08/21/2022 5:49 pm CLINICAL HISTORY: ABD PAIN Pelvic pain. COMPARISON: <Comparisons> FINDINGS: The uterus is normal in size, shape and echotexture. The uterus measures 7.6 x 5.5 x 3.9 c m. The endometrial stripe measures 6 mm, normal. Both ovaries are normal in size, shape and echotexture. The right ovary measures 2.7 x 2.7 cm. The left ovary measures 2.4 x 2.4 cm. No ovarian or parovarian lesions. No adnexal masses. Normal Doppler blood flow was demonstrated to both ovaries. No significant pelvic ascites. IMPRESSION: Unremarkable study.
[2022-08-21 18:14] LABS: Specific Gravity < 1.005 (1.005-1.030); Urine Bacteria <20 /HPF (<20); Urine Bilirubin NEGATIVE (Negative); Urine Blood 3+ (OVER) (Negative); Urine Clarity Turbid (Clear); Urine Color Colorless (Yellow); Urine Crystals Unidentified Few /HPF (None Seen); Urine Glucose NEGATIVE (Negative); Urine Protein 1+ (Negative); Urine Urobilinogen Normal (Normal)
[2022-08-21 18:18] LABS: Specific Gravity 1.005 (1.005-1.030)
--- NOTE | 2022-08-21 18:20 | EDPHYS ---
Physician Documentation [facility] Name: Shannon Briscoe Age: 22 yrs Sex: Female : 2000 Arrival Date: 08/21/2022 Time: 16:21 Bed 12 Private MD: ED Physician Filippo Brown HPI: 08/21 16:35 This 22 yrs old Black Female presents to ER via Ambulatory with complaints of Abdominal kb Cramping. 16:34 Pt reports suprapubic cramping that started yesterday. States she started her menstrual kb cycle yesterday and it is heavier than normal with clots. . 16:35 The patient presents with vaginal bleeding that is moderate, with clots. Onset: The kb symptoms/episode began/occurred yesterday. Modifying factors: The symptoms are alleviated by nothing, the symptoms are aggravated by nothing. Associated signs and symptoms: Pertinent positives: cramping, vaginal bleeding. Severity of symptoms: At their worst the symptoms were moderate, in the emergency department the symptoms are unchanged. The patient has not experienced similar symptoms in the past. The patient has not recently seen a physician. 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 - Social history:: Smoking status: Patient denies any tobacco usage or history of. ROS: 16:35 Constitutional: Negative for fever, chills, and weight loss. kb 16:35 Abdomen/GI: Positive for diarrhea, abdominal cramps. 16:35 : Positive for vaginal bleeding. 16:35 All other systems are negative. Exam: 16:35 Constitutional: This is a well developed, well nourished patient who is awake, alert, kb and in no acute distress. Head/Face: Normocephalic, atraumatic. ENT: Moist Mucous membranes Cardiovascular: Regular rate and rhythm with a normal S1 and S2. No gallops, murmurs, or rubs. No pulse deficits. Respiratory: Respirations even and unlabored. No increased work of breathing. Talking in full sentences Abdomen/GI: Soft, non-tender. No distention Skin: Warm, dry with normal turgor. Normal color. MS/ Extremity: Pulses equal, no cyanosis. Neurovascular intact. Full, normal range of motion. Neuro: Awake and alert, GCS 15, oriented to person, place, time, and situation. Moves all extremities. Normal gait. Vital Signs: 16:27 BP 129 / 83; Pulse 78; Resp 16; Temp 98.6; Pulse Ox 97% on R/A; Weight 79.38 kg; Height cm10 5 ft. 5 in. ; Pain 7/10; 18:30 BP 158 / 94; Pulse 72; Resp 16; Pulse Ox 97% ; ll1 16:27 Body Mass Index 29.12 (79.38 kg, 165.1 cm) cm10 16:27 Pain Scale: Adult cm10 MDM: 16:23 Patient medically screened. kb 16:36 Differential diagnosis: menorrhea, uterine fibroids, urinary tract infection. Data kb reviewed: vital signs, nurses notes. 18:20 Counseling: I had a detailed discussion with the patient and/or guardian regarding: the kb historical points, exam findings, and any diagnostic results supporting the discharge/admit diagnosis, lab results, radiology results, the need for outpatient follow up, an OB/Gyne specialist, to return to the emergency department if symptoms worsen or persist or if there are any questions or concerns that arise at home. 08/21 16:29 Order name: Test, Urine; Complete Time: 18:19 kb 08/21 16:29 Order name: Urinalysis w/ reflexes; Complete Time: 18:19 kb 08/21 18:20 Order name: Urine Culture EDMS 08/21 16:29 Order name: US Pelvis Complete; Complete Time: 18:12 kb Administered Medications: 18:26 Drug: Ketorolac IM 30 mg Route: IM; Site: right deltoid; ll1 18:32 Follow up: Response: No adverse reaction ll1 Disposition: 08/22 09:59 Co-signature as Attending Physician, Filippo Brown MD I reviewed the patient's care rt provided by the Advanced Practice Provider and agree with the diagnosis and treatment plan. Disposition Summary: 08/21/22 18:20 Discharge Ordered Location: Home kb Condition: Stable kb Diagnosis - Dysmenorrhea, unspecified kb Followup: kb - With: Emergency Department - When: As needed - Reason: Worsening of condition Followup: kb - With: Private Physician - When: 2 - 3 days - Reason: Recheck today's complaints, Continuance of care, Re-evaluation by your physician Discharge Instructions: - Discharge Summary Sheet kb - Dysmenorrhea, [id number] kb Forms: - Medication Reconciliation Form kb - Thank You Letter kb - Antibiotic Education kb - Prescription Opioid Use kb - Work release form ll1 Signatures: Dispatcher [employer] EDAlejandra Prasad, DAYAMI-C DAYAMI-Sherine Suarez, RN RN ll1 Filippo Brown MD MD rt Shabana Sorenson RN RN cm10
--- NOTE | 2022-08-21 18:20 | ER ---
Nurse's Notes [facility] Name: Shannon Briscoe Age: 22 yrs Sex: Female : 2000 Arrival Date: 08/21/2022 Time: 16:21 Bed 12 Private MD: Diagnosis: Dysmenorrhea, unspecified Presentation: 08/21 16:27 Chief complaint: Patient states: lower abdominal cramping onset yesterday. Pt reports cm10 diarrhea onset yesterday. No fevers. Coronavirus screen: Vaccine status: Patient reports being unvaccinated. Client denies travel out of the [place] in the last 14 days. At this time, the client does not indicate any symptoms associated with coronavirus-19. Ebola Screen: No symptoms or risks identified at this time. Initial Sepsis Screen: Does the patient meet any 2 criteria? No. Patient's initial sepsis screen is negative. Does the patient have a suspected source of infection? No. Patient's initial sepsis screen is negative. Risk Assessment: Do you want to hurt yourself or someone else? Patient reports no desire to harm self or others. Onset of symptoms was August 20, 2022. 16:27 Method Of Arrival: Ambulatory cm10 16:27 Acuity: SAMEER 3 cm10 Triage Assessment: 16:30 General: Appears in no apparent distress. comfortable, Behavior is calm, cooperative. cm10 Neuro: No deficits noted. Level of Consciousness is awake, alert, obeys commands, Oriented to person, place, time, situation. Respiratory: No deficits noted. Airway is patent Respiratory effort is even, unlabored, Respiratory pattern is regular, symmetrical. 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 - Social history:: Smoking status: Patient denies any tobacco usage or history of. Screenin:05 [facility] ED Fall Risk Assessment (Adult) Score/Fall Risk Level 0 - 2 = Low Risk ll1 Oriented to surroundings, Maintained a safe environment, Educated pt \T\ family on fall prevention, incl call for assistance when getting out of bed, Hourly rounding (assess needs \T\ fall precautionary measures) done. Abuse screen: Denies threats or abuse. Nutritional screening: No deficits noted. Tuberculosis screening: No symptoms or risk factors identified. Assessment: 18:05 Reassessment: No changes from previously documented assessment. Patient and/or family ll1 updated on plan of care and expected duration. Pain level reassessed. Patient is alert, oriented x 3, equal unlabored respirations, skin warm/dry/pink. 18:31 Reassessment: No changes from previously documented assessment. Patient and/or family ll1 updated on plan of care and expected duration. Pain level reassessed. Patient is alert, oriented x 3, equal unlabored respirations, skin warm/dry/pink. 18:31 Pain: Complains of pain in pelvis. GI: Bowel sounds present X 4 quads. Abd is soft and ll1 non tender X 4 quads. Vital Signs: 16:27 BP 129 / 83; Pulse 78; Resp 16; Temp 98.6; Pulse Ox 97% on R/A; Weight 79.38 kg; Height cm10 5 ft. 5 in. ; Pain 7/10; 18:30 BP 158 / 94; Pulse 72; Resp 16; Pulse Ox 97% ; ll1 16:27 Body Mass Index 29.12 (79.38 kg, 165.1 cm) cm10 16:27 Pain Scale: Adult cm10 ED Course: 16:22 Patient arrived in ED. rg4 16:23 Alejandra Braun [facility]NP-C [facility] kb 16:23 Filippo Brown MD is Attending Physician. kb 16:29 Triage completed. cm10 16:30 Arm band placed on Patient placed in waiting room. cm10 17:51 US Pelvis Complete In Process Unspecified. EDMS 17:56 Test, Urine Sent. ss 17:56 Urinalysis w/ reflexes Sent. ss 18:03 Patient placed in an exam room, on a stretcher. ll1 18:05 Patient has correct armband on for positive identification. Bed in low position. Call ll1 light in reach. Cardiac monitoring not applicable on this patient. 18:31 No provider procedures requiring assistance completed. Patient did not have IV access ll1 during this emergency room visit. Administered Medications: 18:26 Drug: Ketorolac IM 30 mg Route: IM; Site: right deltoid; ll1 18:32 Follow up: Response: No adverse reaction ll1 Medication: 18:05 VIS not applicable for this client. 1 Outcome: 18:20 Discharge ordered by MD. zabala 18:31 Discharged to home ambulatory. 1 18:31 Condition: stable 18:31 Discharge instructions given to patient, Instructed on discharge instructions, follow up and referral plans. Demonstrated understanding of instructions, follow-up care. 18:32 Patient left the ED. 1 Signatures: Dispatcher [employer] EDMS Alejandra Braun, MACHINE STRAP BUCKLER-C MACHINE STRAP BUCKLER-CkShalini Corbett, RN RN Bindu Jenkins rg4 Sherine Meng RN RN ll1 Shabana Sorenson RN RN cm10
[2022-08-21] MEDS ORDERED: KETOROLAC 30 MG/ML INJ ONE (18:31)
[2022-08-21 19:10] VITALS: TEMP 98.6; O2SAT 97
[2022-08-21 19:11] VITALS: BP 158/94
== END 2022-08-21 18:32 | disposition home or self-care (01) ==
LOC: ER 16:21
DX: N94.6 Dysmenorrhea, unspecified (principal); R19.7 Diarrhea, unspecified; Z88.0 Allergy status to penicillin; Z88.1 Allergy status to other antibiotic agents
CPT/HCPCS: 76856; 81001; 81025; 87086; 87088; 96372; 99284